=== PATIENT | male | born 1980 | race Caucasian/White ===

== ENCOUNTER 2022-05-04 17:42 | Inpatient (IN) | payer OTHER, SELFPAY ==
--- NOTE | ~2022-05-04 | XR_ITS ---
EXAMINATION: XR CHEST CLINICAL INFORMATION: Altered mental status COMPARISON: None TECHNIQUE: Frontal view of the chest was obtained. FINDINGS: No significant abnormality is noted involving the heart, lungs, mediastinum, bony thorax or soft tissues. XR/XR chest 1V IMPRESSION: Unremarkable examination.
[2022-05-04 19:04] VITALS: BP 166/95; PULSE 123; RESP 18; TEMP 36.4; O2SAT 98; BMI 30.1
--- NOTE | 2022-05-04 19:04 | ED_ITS ---
HPI - General Adult General Chief complaint: General Medical <LOUISA Galaviz - Last Filed: 05/04/22 19:12> Stated complaint: dental pain <LOUISA Galaviz Last Filed: 05/04/22 19:12> Time Seen by Provider: 05/04/22 19:48 <LOUISA Galaviz - Last Filed: 05/04/22 19:12> Source: patient and family (patient's father) <LOUISA Araiza Last Filed: 05/05/22 02:38> Mode of arrival: ambulatory <LOUISA Araiza - Last Filed: 05/05/22 02:38> Limitations: no limitations <LOUISA Araiza Last Filed: 05/05/22 02:38> History of Present Illness HPI narrative: Patient is a 42 year old assigned male at with no reported medical history presenting to the emergency department today with dental pain, difficulty urinating, and extreme thirst. Patient states that over the last few days he has had left sided dental pain, extreme thirst, and difficulty urinating. Patient denies any dizziness, lightheadedness, abdominal pain, nausea, vomiting, fever, chills, blurry vision, double vision, loss of vision, chest pain, difficulty breathing, shortness of breath, back pain, night sweats, pain with urination, increased urinary frequency, increased urinary urgency, blood in his urine or stool, syncope or a near syncopal episode, recent trauma or falls, bowel incontinence, bladder incontinence, bowel retention, bladder retention, or any other complaints at this time. <LOUISA Araiza - Last Filed: 05/05/22 02:38> Onset (ago): day(s) <LOUISA Araiza - Last Filed: 05/05/22 02:38> Severity: moderate <LOUISA Araiza Last Filed: 05/05/22 02:38> Severity scale (1-10): 5 <LOUISA Araiza Last Filed: 05/05/22 02:38> Relieving factors: none <LOUISA Araiza Last Filed: 05/05/22 02:38> Exacerbating factors: none <LOUISA Araiza Last Filed: 05/05/22 02:38> Treatments prior to arrival: none <LOUISA Araiza - Last Filed: 05/05/22 02:38> Related Data Home medications: Previous Rx's Medication Instructions Recorded alcohol swabs 1 pad topical QIDACHS #300 ea 05/07/22 blood sugar diagnostic (True #120 ea 05/07/22 Metrix Glucose Test Strip) blood sugar diagnostic (True #120 ea 05/07/22 Metrix Glucose Test Strip) blood-glucose meter (True Metrix #1 ea 05/07/22 Glucose Meter kit) blood-glucose meter (True Metrix #1 ea 05/07/22 Glucose Meter kit) insulin aspart U-100 100 unit/mL 15 unit (0.15 mL) subcut TID #15 mL 05/07/22 (3 mL) subcutaneous pen (Novolog Flexpen U-100 Insulin aspart) insulin glargine 100 unit/mL (3 80 unit (0.8 mL) subcut BID #60 mL 05/07/22 mL) subcutaneous pen (Lantus Solostar U-100 Insulin) insulin lispro 100 unit/mL 15 unit (0.15 mL) subcut TIDAC #15 05/07/22 subcutaneous pen (Humalog KwikPen mL (U-100) Insulin) lancets (Lancets,Thin) #120 ea 05/07/22 lancets (Lancets,Thin) #120 ea 05/07/22 pen needle, diabetic 32 gauge x #300 ea 05/07/22 1/4 insulin degludec 200 unit/mL (3 80 unit (0.4 mL) subcut BID 30 05/14/22 mL) subcutaneous pen (Tresiba days #24 mL FlexTouch U-200 insulin) <LOUISA Gaalviz - Last Filed: 05/04/22 19:12> Allergies/adverse reactions: Allergies Allergy/AdvReac Type Severity Reaction Status Date / Time No Known Allergies Allergy Verified 05/14/22 11:12 <LOUISA Galaviz - Last Filed: 05/04/22 19:12> Review of Systems Constitutional: Constitutional: Reports no additional constitutional complaints, Denies chills, Denies fever(s) and Denies night sweats <LOUISA Araiza - Last Filed: 05/05/22 02:38> Eyes: Eyes: Reports no additional eye complaints, Denies blurry vision, Denies change in vision, Denies diplopia, Denies eye discharge, Denies loss of vision and Denies eye pain <LOUISA Araiza Last Filed: 05/05/22 02:38> ENT: Denies dizziness <LOUISA Araiza - Last Filed: 05/05/22 02:38> Comments: dental pain <LOUISA Araiza - Last Filed: 05/05/22 02:38> Cardiovascular: Cardiovascular: Reports no additional cardiovascular complaints, Denies chest pain, Denies lightheadedness, Denies Loss of Consciousness and Denies dyspnea <LOUISA Araiza - Last Filed: 05/05/22 02:38> Respiratory: Respiratory: Reports no additional respiratory complaints and Denies dyspnea <LOUISA Araiza - Last Filed: 05/05/22 02:38> Gastrointestinal: Gastrointestinal: Reports no additional gastrointestinal complaints, Denies abdominal pain, Denies melena, Denies hematochezia, Denies change in bowel habits and Denies change in stool character <LOUISA Araiza Last Filed: 05/05/22 02:38> Genitourinary: Genitourinary: Reports no additional male genitourinary complaints, Denies hematuria, Denies oliguria, Denies difficulty urinating, Ed es dysuria, Denies urinary frequency, Denies urinary hesitancy, Denies urinary incontinence and Denies urinary urgency <LOUISA Araiza Last Filed: 05/05/22 02:38> Musculoskeletal: Musculoskeletal: Reports no additional musculoskeletal complaints, Denies numbness and Denies tingling <LOUISA Araiza Last Filed: 05/05/22 02:38> Neurologic: Denies dizziness, Denies loss of vision, Denies numbness and Denies tingling <LOUISA Araiza Last Filed: 05/05/22 02:38> Psychiatric: Psychiatric: Reports no additional psychiatric complaints <LOUISA Araiza Last Filed: 05/05/22 02:38> Endocrine: Endocrine: Reports no additional endocrine complaints <LOUISA Araiza Last Filed: 05/05/22 02:38> Comments: increasd thirst <LOUISA Araiza - Last Filed: 05/05/22 02:38> Hematologic/Lymphatic: Hematologic/Lymphatic: Reports no additional hematologic/lymphatic complaints <LOUISA Araiza - Last Filed: 05/05/22 02:38> Allergic/Immunologic: Allergic/Immunologic: Reports no additional allergic/immunologic complaints <LOUISA Araiza - Last Filed: 05/05/22 02:38> [facility] Past Medical History Attestation statement: The following information was validated with the patient. <LOUISA Hollins - Last Filed: 05/05/22 02:38> Source: old records reviewed, obtained from family (patient's father) and nursing notes reviewed <LOUISA Araiza - Last Filed: 05/05/22 02:38> Medical History: Medical History (Updated 05/17/22 @ 00:02 by Eber Hi) Uncontrolled diabetes mellitus with hyperglycemia <LOUISA Galaviz - Last Filed: 05/04/22 19:12> Family History Family History: Family History (Updated 05/14/22 @ 11:14 by Ara Rao) Father Diabetes Paternal Grandmother Diabetes Paternal Uncle Diabetes <LOUISA Galaviz - Last Filed: 05/04/22 19:12> Social History Social History: Social History Household Members: None Housing: Apartment Do you presently have visiting nurse or other home services: No Patient Tobacco Use Status: Never used Tobacco e-Cigarette/Vaping Use: Never Used Second Hand Smoke Exposure: No service: No Current occupational status: employed <LOUISA Galaviz - Last Filed: 05/04/22 19:12> Physical Exam ED Vital Signs: Vital Signs - 24 hr 05/04/22 19:04 05/04/22 20:45 Temperature 97.5 F Pulse Rate 123 H 120 H Respiratory Rate 18 20 Blood Pressure 166/95 H 161/104 H Pulse Oximetry 98 96 Oxygen Delivery Method Room Air Room Air BMI result Body Mass Index 30.1 <LOUISA Galaviz - Last Filed: 05/04/22 19:12> Vital Signs - 24 hr 05/04/22 19:04 05/04/22 20:45 Temperature 97.5 F Pulse Rate 123 H 120 H Respiratory Rate 18 20 Blood Pressure 166/95 H 161/104 H Pulse Oximetry 98 96 Oxygen Delivery Method Room Air Room Air BMI result Body Mass Index 30.1 <LOUISA Araiza - Last Filed: 05/05/22 02:38> Const General: cooperative, no acute distress, alert and awake <LOUISA Araiza - Last Filed: 05/05/22 02:38> Nutritional Appearance: well nourished <LOUISA Araiza - Last Filed: 05/05/22 02:38> Orientation/consciousness: patient oriented x3 <LOUISA Araiza - Last Filed: 05/05/22 02:38> Limitations: no limitations <LOUISA Araiza - Last Filed: 05/05/22 02:38> HENMT Head: Yes normal to inspection and Yes atraumatic <LOUISA Araiza - Last Filed: 05/05/22 02:38> Ears: hearing grossly normal bilaterally and external ears normal <LOUISA Araiza - Last Filed: 05/05/22 02:38> General nose exam: Normal external nose present, no nasal discharge noted and no epistaxis <LOUISA Araiza - Last Filed: 05/05/22 02:38> Face and sinus: Yes normal facial exam, No abrasion and No laceration <LOUISA Araiza - Last Filed: 05/05/22 02:38> Mouth: Normal oral and palatal mucosa present, no drooling and no muffled voice <LOUISA Araiza - Last Filed: 05/05/22 02:38> Eyes General: appearance normal, both eyes and all related structures <LOUISA Araiza - Last Filed: 05/05/22 02:38> Periorbital: periorbital findings normal <LOUISA Araiza - Last Filed: 05/05/22 02:38> Eyelids: Yes eyelids normal <LOUISA Araiza - Last Filed: 05/05/22 02:38> Conjunctivae: conjunctivae normal <LOUISA Araiza - Last Filed: 05/05/22 02:38> Pupils: Equal, round and reactive pupils present <LOUISA Araiza - Last Filed: 05/05/22 02:38> EOM: EOMs intact bilaterally <Nina Luu PA - Last Filed: 05/05/22 02:38> Neck Neck: Yes normal visual inspection, Yes full ROM and Yes no lymphadenopathy <Nina Luu PA - Last Filed: 05/05/22 02:38> Chest Chest palpation & inspection: normal inspection of the chest <Nina Luu PA - Last Filed: 05/05/22 02:38> Resp Effort & Inspection: normal respiratory effort and able to speak in complete sentences <Nina Luu PA - Last Filed: 05/05/22 02:38> Auscultation: clear to auscultation bilaterally <Nina Luu PA - Last Filed: 05/05/22 02:38> Cardio Rate: tachycardic <Nina Luu PA - Last Filed: 05/05/22 02:38> Rhythm: regular rhythm <Nina Luu PA - Last Filed: 05/05/22 02:38> GI Inspection: Yes normal to inspection <Nina Luu PA - Last Filed: 05/05/22 02:38> Palpation (GI): Soft to palpation, not firm, nontender, no guarding and not rigid <Nina Luu PA - Last Filed: 05/05/22 02:38> Neuro General: patient oriented x3 and moves all extremities <Nina Luu PA - Last Filed: 05/05/22 02:38> Cranial nerves: Yes Equal, round and reactive pupils present <Nina Luu PA - Last Filed: 05/05/22 02:38> Cognition (Neuro): normal cognition <Nina Luu PA - Last Filed: 05/05/22 02:38> Motor exam (neuro): 5/5 motor strength present throughout <Nina Luu PA - Last Filed: 05/05/22 02:38> Sensory Exam: Normal double simultaneous stimulation for sensation <Nina Luu PA - Last Filed: 05/05/22 02:38> Coordination: [id number] test normal <Nina Luu PA - Last Filed: 05/05/22 02:38> Extrem General: Yes normal to inspection, Yes full ROM and Yes capillary refill normal <Nina Luu PA - Last Filed: 05/05/22 02:38> Psych Appearance: grossly normal <LOUISA Araiza - Last Filed: 05/05/22 02:38> Mental Status: mental status grossly normal <LOUISA Araiza - Last Filed: 05/05/22 02:38> Affect: normal affect <LOUISA Araiza - Last Filed: 05/05/22 02:38> Attitude: cooperative <LOUISA Araiza - Last Filed: 05/05/22 02:38> Thought process: Normal thought process present <LOUISA Araiza Last Filed: 05/05/22 02:38> Thought content: Normal thought content present <LOUISA Araiza Last Filed: 05/05/22 02:38> Insight: Good insight present (Psych) <LOUISA Araiza Last Filed: 05/05/22 02:38> Course Course Course Narrative: RME-19:05PM - 42yoM presenting to the ED with his father at bedside with complaints of increased confusion/altered mental status, dental pain, increasing urination difficulty walking this has been happening for over a week. The father did not realize this was happening up until yesterday therefore he brought him here for further evaluation treatment. He tried to check his blood glucose level because he is a diabetic although he does not believe the patient is a diabetic that he is aware of. On exam patient appears confused although he is alert and able to tell me his full name, date of the year and location he is at. Plan: POC care done in triage due to patient's confusion and it is too high to be read on the glucose monitor therefore patient is going to the emergency department for further evaluation treatment for possible DKA new onset of diabetes. <LOUISA Galaviz - Last Filed: 05/04/22 19:12> Medications Administered Discontinued Medications Generic Name Dose Route Start Last Admin Trade Name Garryq PRN Reason Stop Dose Admin Famotidine 20 mg 05/04/22 23:15 05/05/22 20:03 Famotidine/Pf 20 Mg/2 Ml Vial IVPUSH 20 mg BID LAURYN Administration Heparin Sodium (Porcine) 5,000 unit 05/04/22 23:15 05/09/22 17:05 Heparin Sodium,Porcine 5,000 Unit/Ml Vial SUBCUT Not Given Q8H LAURYN Sodium Chloride 1,000 mls @ 999 mls/hr 05/04/22 19:15 05/04/22 23:28 Ns IVCONT 05/04/22 20:15 Infused .Q1H1M LAURYN Infusion Sodium Chloride 1,000 mls @ 999 mls/hr 05/04/22 19:45 05/04/22 23:28 Ns IVCONT 05/04/22 20:45 Infused .Q1H1M LAURYN Infusion Insulin Human Regular 100 unit in 100 mls @ 7 mls/hr 05/04/22 20:30 05/05/22 09:47 Myxredlin IVCONT Infused .[id number] LAURYN Titration Protocol 7 UNIT/HR Sodium Chloride 1,000 mls @ 250 mls/hr 05/04/22 23:00 05/05/22 04:58 Sodium Chloride 0.45 % IVCONT Infused .Q4H LAURYN Infusion Potassium Chloride/Sodium Chloride 20 meq in 1,000 mls @ 150 mls/hr 05/05/22 05:00 05/05/22 07:13 Kcl 20 Meq In 0.45% Sod IVCONT Infused .Q6H40M LAURYN Infusion Potassium Chloride/Dextrose/Sod Cl 40 meq in 1,000 mls @ 125 mls/hr 05/05/22 06:45 05/05/22 09:17 Kcl 40 Meq In 5% Dex/0.45% Sod IVCONT Infused .Q8H LAURYN Infusion Potassium Phosphate 15 mmol in 250 mls @ 62.5 mls/hr 05/05/22 06:42 05/05/22 12:07 Kphos IV 05/05/22 10:41 Infused ONCE ONE Infusion Dextrose 1,000 mls @ 125 mls/hr 05/05/22 08:30 05/05/22 14:40 D5w IVCONT Infused .Q8H LAURYN Infusion Insulin Glargine 40 unit 05/05/22 09:40 05/05/22 10:00 Insulin Glargine,Hum.Rec.Anlog 100 Unit/Ml 10 Ml Vial SUBCUT 40 unit DAILY LAURYN Administration Insulin Glargine 20 unit 05/05/22 13:11 05/05/22 13:30 Insulin Glargine,Hum.Rec.Anlog 100 Unit/Ml 10 Ml Vial SUBCUT 05/05/22 13:12 20 unit ONCE ONE Administration Insulin Glargine 20 unit 05/05/22 16:47 05/05/22 17:02 Insulin Glargine,Hum.Rec.Anlog 100 Unit/Ml 10 Ml Vial SUBCUT 05/05/22 16:48 20 unit ONCE ONE Administration Insulin Glargine 80 unit 05/06/22 09:00 05/09/22 08:47 Insulin Glargine,Hum.Rec.Anlog 100 Unit/Ml 10 Ml Vial SUBCUT 80 unit BID LAURYN Administration Insulin Human Lispro 0 unit 05/05/22 11:30 05/09/22 17:20 Insulin Lispro 100 Unit/Ml 3 Ml Vial SUBCUT Not Given QIDACHS [facility] Protocol Insulin Human Lispro 10 unit 05/05/22 21:58 05/05/22 22:09 Insulin Lispro 100 Unit/Ml 3 Ml Vial SUBCUT 05/05/22 21:59 10 unit ONCE ONE Administration Insulin Human Regular 8 unit 05/04/22 19:49 05/04/22 20:29 Insulin Regular, Human 100 Unit/Ml 3 Ml Vial 0.1 unit/kg (8 unit) 05/04/22 19:50 8 unit IVPUSH Administration ONCE ONE Pt Own (Insulin 15 units 05/09/22 14:08 05/09/22 15:02 Aspart Flexpen ) SUBCUT 05/09/22 14:09 15 units ONCE ONE Administration Pt Own (Insulin 15 unit 05/09/22 15:14 05/09/22 17:21 Aspart Pen 15 Unit) SUBCUT 05/09/22 15:15 Not Given ONCE ONE Pt Own (Insulin 15 unit 05/09/22 17:00 05/09/22 17:04 Aspart Pen 15 Unit) SUBCUT 05/09/22 17:01 15 unit ONCE ONE Administration Potassium Chloride 20 meq 05/05/22 20:12 05/05/22 20:32 Potassium Chloride Packet 20 Meq Packet PO 05/05/22 20:13 20 meq ONCE ONE Administration Potassium Chloride 40 meq 05/06/22 08:00 05/06/22 08:01 Potassium Chloride Packet 20 Meq Packet PO 05/06/22 08:01 40 meq Q4H LAURYN Administration Sodium Chloride 3 ml 05/05/22 00:00 05/09/22 17:05 0.9 % Sodium Chloride Flush 3 Ml Syringe IVFLUSH Not Given QSHIFT LAURYN <LOUISA Galaviz - Last Filed: 05/04/22 19:12> Medications Administered Discontinued Medications Generic Name Dose Route Start Last Admin Trade Name Prema PRN Reason Stop Dose Admin Famotidine 20 mg 05/04/22 23:15 05/05/22 20:03 Famotidine/Pf 20 Mg/2 Ml Vial IVPUSH 20 mg BID LAURYN Administration Heparin Sodium (Porcine) 5,000 unit 05/04/22 23:15 05/09/22 17:05 Heparin Sodium,Porcine 5,000 Unit/Ml Vial SUBCUT Not Given Q8H LAURYN Sodium Chloride 1,000 mls @ 999 mls/hr 05/04/22 19:15 05/04/22 23:28 Ns IVCONT 05/04/22 20:15 Infused .Q1H1M LAURYN Infusion Sodium Chloride 1,000 mls @ 999 mls/hr 05/04/22 19:45 05/04/22 23:28 Ns IVCONT 05/04/22 20:45 Infused .Q1H1M LAURYN Infusion Insulin Human Regular 100 unit in 100 mls @ 7 mls/hr 05/04/22 20:30 05/05/22 09:47 Myxredlin IVCONT Infused .[id number] LAURYN Titration Protocol 7 UNIT/HR Sodium Chloride 1,000 mls @ 250 mls/hr 05/04/22 23:00 05/05/22 04:58 Sodium Chloride 0.45 % IVCONT Infused .Q4H LAURYN Infusion Potassium Chloride/Sodium Chloride 20 meq in 1,000 mls @ 150 mls/hr 05/05/22 05:00 05/05/22 07:13 Kcl 20 Meq In 0.45% Sod IVCONT Infused .Q6H40M LAURYN Infusion Potassium Chloride/Dextrose/Sod Cl 40 meq in 1,000 mls @ 125 mls/hr 05/05/22 06:45 05/05/22 09:17 Kcl 40 Meq In 5% Dex/0.45% Sod IVCONT Infused .Q8H LAURYN Infusion Potassium Phosphate 15 mmol in 250 mls @ 62.5 mls/hr 05/05/22 06:42 05/05/22 12:07 Kphos IV 05/05/22 10:41 Infused ONCE ONE Infusion Dextrose 1,000 mls @ 125 mls/hr 05/05/22 08:30 05/05/22 14:40 D5w IVCONT Infused .Q8H LAURYN Infusion Insulin Glargine 40 unit 05/05/22 09:40 05/05/22 10:00 Insulin Glargine,Hum.Rec.Anlog 100 Unit/Ml 10 Ml Vial SUBCUT 40 unit DAILY LAURYN Administration Insulin Glargine 20 unit 05/05/22 13:11 05/05/22 13:30 Insulin Glargine,Hum.Rec.Anlog 100 Unit/Ml 10 Ml Vial SUBCUT 05/05/22 13:12 20 unit ONCE ONE Administration Insulin Glargine 20 unit 05/05/22 16:47 05/05/22 17:02 Insulin Glargine,Hum.Rec.Anlog 100 Unit/Ml 10 Ml Vial SUBCUT 05/05/22 16:48 20 unit ONCE ONE Administration Insulin Glargine 80 unit 05/06/22 09:00 05/09/22 08:47 Insulin Glargine,Hum.Rec.Anlog 100 Unit/Ml 10 Ml Vial SUBCUT 80 unit BID LAURYN Administration Insulin Human Lispro 0 unit 05/05/22 11:30 05/09/22 17:20 Insulin Lispro 100 Unit/Ml 3 Ml Vial SUBCUT Not Given QIDACHS [facility] Protocol Insulin Human Lispro 10 unit 05/05/22 21:58 05/05/22 22:09 Insulin Lispro 100 Unit/Ml 3 Ml Vial SUBCUT 05/05/22 21:59 10 unit ONCE ONE Administration Insulin Human Regular 8 unit 05/04/22 19:49 05/04/22 20:29 Insulin Regular, Human 100 Unit/Ml 3 Ml Vial 0.1 unit/kg (8 unit) 05/04/22 19:50 8 unit IVPUSH Administration ONCE ONE Pt Own (Insulin 15 units 05/09/22 14:08 05/09/22 15:02 Aspart Flexpen ) SUBCUT 05/09/22 14:09 15 units ONCE ONE Administration Pt Own (Insulin 15 unit 05/09/22 15:14 05/09/22 17:21 Aspart Pen 15 Unit) SUBCUT 05/09/22 15:15 Not Given ONCE ONE Pt Own (Insulin 15 unit 05/09/22 17:00 05/09/22 17:04 Aspart Pen 15 Unit) SUBCUT 05/09/22 17:01 15 unit ONCE ONE Administration Potassium Chloride 20 meq 05/05/22 20:12 05/05/22 20:32 Potassium Chloride Packet 20 Meq Packet PO 05/05/22 20:13 20 meq ONCE ONE Administration Potassium Chloride 40 meq 05/06/22 08:00 05/06/22 08:01 Potassium Chloride Packet 20 Meq Packet PO 05/06/22 08:01 40 meq Q4H LAURYN Administration Sodium Chloride 3 ml 05/05/22 00:00 05/09/22 17:05 0.9 % Sodium Chloride Flush 3 Ml Syringe IVFLUSH Not Given QSHIFT LAURYN <LOUISA Araiza - Last Filed: 05/05/22 02:38> Medical Decision Making Medical Decision Making MDM Narrative: Patient is a 42 year old assigned male at with no reported medical history presenting to the emergency department today with left sided dental pain and increased thirst. Patient's physical exam showed tachycardia. Patient's blood work showed an elevated glucose of 1695, an elevated lactic acid of 4.2, an elevated CR of 2.81, an elevated BUN of 31, an elevated anion gap of 32, an elevated potassium of 5.9, an elevated phosphorus of 4.6, and a decreased sodium of 127. Patient's urine showed no acute infection. Patient's EKG showed sinus tachycardia. Patient's chest x-ray showed no acute process. Patient was immediately given IV fluids, 8 units of insulin, and started on an insulin drip. Patient's clinical presentation is most consistent with DKA vs. HHS. Patient's clinical presentation is not consistent with sepsis. I spoke to the dynamic balancer who agreed to admission. I explained my physical exam findings as well as all test results to the patient and the patient's father. I answered all questions asked by the patient and the patient's father. Patient and the patient's father verbalized agreement and understanding with this treatment plan and admission. <LOIUSA Araiza - Last Filed: 05/05/22 02:38> Differential Diagnosis Differential Diagnoses: The differential diagnosis associated with the presentation includes <LOUISA Brady - Last Filed: 05/05/22 02:38> HHS, DKA <LOUISA Araiza - Last Filed: 05/05/22 02:38> Consult Healthcare Provider Management of the patient was discussed with: Skip Hoist Operator (dynamic balancer who agreed to admission) <LOUISA Araiza - Last Filed: 05/05/22 02:38> Lab Data MDM Lab Attestation statement: I reviewed the patient's lab results. <LOUISA Araiza - Last Filed: 05/05/22 02:38> Result Diagrams: : 05/07/22 05:50 05/07/22 05:50 <LOUISA Galaviz - Last Filed: 05/04/22 19:12> Labs: Lab Results 05/04/22 05/04/22 05/04/22 Range/Units 19:09 19:12 19:15 WBC (4.8-10.8) X10*3/uL RBC (4.60-5.80) X10*6/uL Hgb (14.0-18.0) g/dl Hct (42.0-52.0) % MCV (80.0-98.0) fL MCH (27.0-33.0) pg MCHC (31.0-36.0) g/dl RDW (11.0-16.0) % Plt Count (160-400) X10*3/uL MPV (9.4-12.4) fL Immature Gran % (Auto) (0.0-0.4) % Neut % (Auto) (45-73) % Lymph % (Auto) (20-40) % [place] % (Auto) (2-11) % Eos % (Auto) (0-4) % Baso % (Auto) (0-2) % Lymph # (Auto) (1.2-4.9) X10*3/uL [place] # (Auto) (0.1-1.2) X10*3/uL Eos # (Auto) (0.0-0.4) X10*3/uL Baso # (Auto) (0.0-0.2) X10*3/uL Abs Immat Gran (auto) (0.00-0.03) X10*3/uL Absolute Neuts (auto) (2.0-8.3) x10*3/uL Absolute Nucleated RBC (0.0-0.012) X10*3/uL Nucleated RBC % (auto) (0.0-0.2) /100WBC PT (10.0-13.1) SEC INR (0.9-1.1) VBG pH (7.32-7.43) VBG pCO2 mmHg VBG pO2 mmHg VBG HCO3 (22-26) mmol/L VBG O2 Saturation % VBG Base Excess mmol/L Sodium (135-145) mmol/L Potassium (3.3-5.1) mmol/L Chloride (96-108) mmol/L Carbon Dioxide (22-29) mmol/L Anion Gap (12-20) BUN (9-16) mg/dL Creatinine (0.5-1.4) mg/dL Estim Creat Clear Calc Estimated GFR POC Glucose > 600 H* > 600 H* > 600 H* (60-115) mg/dL Random Glucose (60-115) mg/dL Lactic Acid (0.5-2.0) mmol/L Lactic Acid F/U @ 2Hr (0.5-2.0) mmol/L Calcium (8.4-10.2) mg/dL Phosphorus (2.7-4.5) mg/dL Magnesium (1.6-2.6) mg/dL Total Bilirubin (0.0-1.0) mg/dL AST (5-37) U/L ALT (0-40) U/L Alkaline Phosphatase (39-117) U/L Troponin I High Sens (<3.5-35.0) ng/L Total Protein (6.5-8.0) g/dL Albumin (3.5-5.0) g/dL Urine Color Urine Appearance Urine pH (5.0-9.0) Ur Specific [place] (1.005-1.025) Urine Protein (Neg-Trace) mg/dL Urine Glucose (UA) (Negative) mg/dL Urine Ketones (Negative) mg/dL Urine Blood (Negative) Urine Nitrite (Negative) Ur Leukocyte Esterase (Negative) Urine RBC (0-2) /HPF Urine WBC (0-5) /HPF Ur Squamous Epith Cells (0-2) /HPF Urine Bacteria (None Seen) Hyaline Casts (0-2) /LPF Urine Opiates Screen (Not Detect) Urine Fentanyl Screen (Not Detect) Ur Barbiturates Screen (Not Detect) Ur Phencyclidine Scrn (Not Detect) Ur Amphetamines Screen (Not Detect) U Benzodiazepines Scrn (Not Detect) Urine Cocaine Screen (Not Detect) U Marijuana (THC) Screen (Not Detect) Ethyl Alcohol mg/dL Acetone, Qual (Negative) Influenza Type A (PCR) (Negative) Influenza Type B (PCR) (Negative) RSV RNA Qual (PCR) (Negative) SARS-CoV-2 RNA (RT-PCR) (Negative) 05/04/22 05/04/22 05/04/22 Range/Units 20:15 20:15 20:16 WBC (4.8-10.8) X10*3/uL RBC (4.60-5.80) X10*6/uL Hgb (14.0-18.0) g/dl Hct (42.0-52.0) % MCV (80.0-98.0) fL MCH (27.0-33.0) pg MCHC (31.0-36.0) g/dl RDW (11.0-16.0) % Plt Count (160-400) X10*3/uL MPV (9.4-12.4) fL Immature Gran % (Auto) (0.0-0.4) % Neut % (Auto) (45-73) % Lymph % (Auto) (20-40) % [place] % (Auto) (2-11) % Eos % (Auto) (0-4) % Baso % (Auto) (0-2) % Lymph # (Auto) (1.2-4.9) X10*3/uL [place] # (Auto) (0.1-1.2) X10*3/uL Eos # (Auto) (0.0-0.4) X10*3/uL Baso # (Auto) (0.0-0.2) X10*3/uL Abs Immat Gran (auto) (0.00-0.03) X10*3/uL Absolute Neuts (auto) (2.0-8.3) x10*3/uL Absolute Nucleated RBC (0.0-0.012) X10*3/uL Nucleated RBC % (auto) (0.0-0.2) /100WBC PT 11.7 (10.0-13.1) SEC INR 1.0 (0.9-1.1) VBG pH (7.32-7.43) VBG pCO2 mmHg VBG pO2 mmHg VBG HCO3 (22-26) mmol/L VBG O2 Saturation % VBG Base Excess mmol/L Sodium (135-145) mmol/L Potassium (3.3-5.1) mmol/L Chloride (96-108) mmol/L Carbon Dioxide (22-29) mmol/L Anion Gap (12-20) BUN (9-16) mg/dL Creatinine (0.5-1.4) mg/dL Estim Creat Clear Calc Estimated GFR POC Glucose (60-115) mg/dL Random Glucose (60-115) mg/dL Lactic Acid (0.5-2.0) mmol/L Lactic Acid F/U @ 2Hr (0.5-2.0) mmol/L Calcium (8.4-10.2) mg/dL Phosphorus (2.7-4.5) mg/dL Magnesium (1.6-2.6) mg/dL Total Bilirubin (0.0-1.0) mg/dL AST (5-37) U/L ALT (0-40) U/L Alkaline Phosphatase (39-117) U/L Troponin I High Sens 8.7 (<3.5-35.0) ng/L Total Protein (6.5-8.0) g/dL Albumin (3.5-5.0) g/dL Urine Color Urine Appearance Urine pH (5.0-9.0) Ur Specific [place] (1.005-1.025) Urine Protein (Neg-Trace) mg/dL Urine Glucose (UA) (Negative) mg/dL Urine Ketones (Negative) mg/dL Urine Blood (Negative) Urine Nitrite (Negative) Ur Leukocyte Esterase (Negative) Urine RBC (0-2) /HPF Urine WBC (0-5) /HPF Ur Squamous Epith Cells (0-2) /HPF Urine Bacteria (None Seen) Hyaline Casts (0-2) /LPF Urine Opiates Screen (Not Detect) Urine Fentanyl Screen (Not Detect) Ur Barbiturates Screen (Not Detect) Ur Phencyclidine Scrn (Not Detect) Ur Amphetamines Screen (Not Detect) U Benzodiazepines Scrn (Not Detect) Urine Cocaine Screen (Not Detect) U Marijuana (THC) Screen (Not Detect) Ethyl Alcohol mg/dL Acetone, Qual (Negative) Influenza Type A (PCR) NEGATIVE (Negative) Influenza Type B (PCR) NEGATIVE (Negative) RSV RNA Qual (PCR) NEGATIVE (Negative) SARS-CoV-2 RNA (RT-PCR) NEGATIVE (Negative) 05/04/22 05/04/22 05/04/22 Range/Units 20:16 20:17 20:17 WBC 8.7 (4.8-10.8) X10*3/uL RBC 5.48 (4.60-5.80) X10*6/uL Hgb 15.1 (14.0-18.0) g/dl Hct 55.1 H (42.0-52.0) % MCV 100.5 H (80.0-98.0) fL MCH 27.6 (27.0-33.0) pg MCHC 27.4 L (31.0-36.0) g/dl RDW 13.3 (11.0-16.0) % Plt Count 235 (160-400) X10*3/uL MPV 11.5 (9.4-12.4) fL Immature Gran % (Auto) 0.6 H (0.0-0.4) % Neut % (Auto) 83.6 H (45-73) % Lymph % (Auto) 9.0 L (20-40) % [place] % (Auto) 6.4 (2-11) % Eos % (Auto) 0.1 (0-4) % Baso % (Auto) 0.3 (0-2) % Lymph # (Auto) 0.8 L (1.2-4.9) X10*3/uL [place] # (Auto) 0.6 (0.1-1.2) X10*3/uL Eos # (Auto) 0.0 (0.0-0.4) X10*3/uL Baso # (Auto) 0.0 (0.0-0.2) X10*3/uL Abs Immat Gran (auto) 0.05 H (0.00-0.03) X10*3/uL Absolute Neuts (auto) 7.3 (2.0-8.3) x10*3/uL Absolute Nucleated RBC 0.000 (0.0-0.012) X10*3/uL Nucleated RBC % (auto) 0.0 (0.0-0.2) /100WBC PT (10.0-13.1) SEC INR (0.9-1.1) VBG pH (7.32-7.43) VBG pCO2 mmHg VBG pO2 mmHg VBG HCO3 (22-26) mmol/L VBG O2 Saturation % VBG Base Excess mmol/L Sodium 127 L (135-145) mmol/L Potassium 5.9 H (3.3-5.1) mmol/L Chloride 82 L (96-108) mmol/L Carbon Dioxide 19 L (22-29) mmol/L Anion Gap 32 H (12-20) BUN 31 H (9-16) mg/dL Creatinine 2.81 H (0.5-1.4) mg/dL Estim Creat Clear Calc 31.4 Estimated GFR 25 POC Glucose (60-115) mg/dL Random Glucose 1695 H* (60-115) mg/dL Lactic Acid (0.5-2.0) mmol/L Lactic Acid F/U @ 2Hr (0.5-2.0) mmol/L Calcium 9.9 (8.4-10.2) mg/dL Phosphorus 4.6 H (2.7-4.5) mg/dL Magnesium 3.1 H (1.6-2.6) mg/dL Total Bilirubin 0.8 (0.0-1.0) mg/dL AST 71 H (5-37) U/L ALT 126 H (0-40) U/L Alkaline Phosphatase 194 H (39-117) U/L Troponin I High Sens (<3.5-35.0) ng/L Total Protein 7.3 (6.5-8.0) g/dL Albumin 4.1 (3.5-5.0) g/dL Urine Color Urine Appearance Urine pH (5.0-9.0) Ur Specific [place] (1.005-1.025) Urine Protein (Neg-Trace) mg/dL Urine Glucose (UA) (Negative) mg/dL Urine Ketones (Negative) mg/dL Urine Blood (Negative) Urine Nitrite (Negative) Ur Leukocyte Esterase (Negative) Urine RBC (0-2) /HPF Urine WBC (0-5) /HPF Ur Squamous Epith Cells (0-2) /HPF Urine Bacteria (None Seen) Hyaline Casts (0-2) /LPF Urine Opiates Screen (Not Detect) Urine Fentanyl Screen (Not Detect) Ur Barbiturates Screen (Not Detect) Ur Phencyclidine Scrn (Not Detect) Ur Amphetamines Screen (Not Detect) U Benzodiazepines Scrn (Not Detect) Urine Cocaine Screen (Not Detect) U Marijuana (THC) Screen (Not Detect) Ethyl Alcohol < 10 mg/dL Acetone, Qual Small H (Negative) Influenza Type A (PCR) (Negative) Influenza Type B (PCR) (Negative) RSV RNA Qual (PCR) (Negative) SARS-CoV-2 RNA (RT-PCR) (Negative) 05/04/22 05/04/22 05/04/22 Range/Units 20:17 20:27 20:36 WBC (4.8-10.8) X10*3/uL RBC (4.60-5.80) X10*6/uL Hgb (14.0-18.0) g/dl Hct (42.0-52.0) % MCV (80.0-98.0) fL MCH (27.0-33.0) pg MCHC (31.0-36.0) g/dl RDW (11.0-16.0) % Plt Count (160-400) X10*3/uL MPV (9.4-12.4) fL Immature Gran % (Auto) (0.0-0.4) % Neut % (Auto) (45-73) % Lymph % (Auto) (20-40) % [place] % (Auto) (2-11) % Eos % (Auto) (0-4) % Baso % (Auto) (0-2) % Lymph # (Auto) (1.2-4.9) X10*3/uL [place] # (Auto) (0.1-1.2) X10*3/uL Eos # (Auto) (0.0-0.4) X10*3/uL Baso # (Auto) (0.0-0.2) X10*3/uL Abs Immat Gran (auto) (0.00-0.03) X10*3/uL Absolute Neuts (auto) (2.0-8.3) x10*3/uL Absolute Nucleated RBC (0.0-0.012) X10*3/uL Nucleated RBC % (auto) (0.0-0.2) /100WBC PT (10.0-13.1) SEC INR (0.9-1.1) VBG pH 7.27 L (7.32-7.43) VBG pCO2 51 mmHg VBG pO2 45 mmHg VBG HCO3 24 (22-26) mmol/L VBG O2 Saturation 65.0 % VBG Base Excess -3.2 mmol/L Sodium (135-145) mmol/L Potassium (3.3-5.1) mmol/L Chloride (96-108) mmol/L Carbon Dioxide (22-29) mmol/L Anion Gap (12-20) BUN (9-16) mg/dL Creatinine (0.5-1.4) mg/dL Estim Creat Clear Calc Estimated GFR POC Glucose (60-115) mg/dL Random Glucose (60-115) mg/dL Lactic Acid 4.2 H* (0.5-2.0) mmol/L Lactic Acid F/U @ 2Hr (0.5-2.0) mmol/L Calcium (8.4-10.2) mg/dL Phosphorus (2.7-4.5) mg/dL Magnesium (1.6-2.6) mg/dL Total Bilirubin (0.0-1.0) mg/dL AST (5-37) U/L ALT (0-40) U/L Alkaline Phosphatase (39-117) U/L Troponin I High Sens (<3.5-35.0) ng/L Total Protein (6.5-8.0) g/dL Albumin (3.5-5.0) g/dL Urine Color Yellow Urine Appearance Clear Urine pH 5.0 (5.0-9.0) Ur Specific [place] >= 1.030 H (1.005-1.025) Urine Protein Negative (Neg-Trace) mg/dL Urine Glucose (UA) >=1000 H (Negative) mg/dL Urine Ketones 15 (Negative) mg/dL Urine Blood Negative (Negative) Urine Nitrite Negative (Negative) Ur Leukocyte Esterase Negative (Negative) Urine RBC 0-2 (0-2) /HPF Urine WBC 0-5 (0-5) /HPF Ur Squamous Epith Cells 0-2 (0-2) /HPF Urine Bacteria None Seen (None Seen) Hyaline Casts 0-2 (0-2) /LPF Urine Opiates Screen (Not Detect) Urine Fentanyl Screen (Not Detect) Ur Barbiturates Screen (Not Detect) Ur Phencyclidine Scrn (Not Detect) Ur Amphetamines Screen (Not Detect) U Benzodiazepines Scrn (Not Detect) Urine Cocaine Screen (Not Detect) U Marijuana (THC) Screen (Not Detect) Ethyl Alcohol mg/dL Acetone, Qual (Negative) Influenza Type A (PCR) (Negative) Influenza Type B (PCR) (Negative) RSV RNA Qual (PCR) (Negative) SARS-CoV-2 RNA (RT-PCR) (Negative) 05/04/22 05/04/22 05/04/22 Range/Units 20:36 21:56 21:57 WBC (4.8-10.8) X10*3/uL RBC (4.60-5.80) X10*6/uL Hgb (14.0-18.0) g/dl Hct (42.0-52.0) % MCV (80.0-98.0) fL MCH (27.0-33.0) pg MCHC (31.0-36.0) g/dl RDW (11.0-16.0) % Plt Count (160-400) X10*3/uL MPV (9.4-12.4) fL Immature Gran % (Auto) (0.0-0.4) % Neut % (Auto) (45-73) % Lymph % (Auto) (20-40) % [place] % (Auto) (2-11) % Eos % (Auto) (0-4) % Baso % (Auto) (0-2) % Lymph # (Auto) (1.2-4.9) X10*3/uL [place] # (Auto) (0.1-1.2) X10*3/uL Eos # (Auto) (0.0-0.4) X10*3/uL Baso # (Auto) (0.0-0.2) X10*3/uL Abs Immat Gran (auto) (0.00-0.03) X10*3/uL Absolute Neuts (auto) (2.0-8.3) x10*3/uL Absolute Nucleated RBC (0.0-0.012) X10*3/uL Nucleated RBC % (auto) (0.0-0.2) /100WBC PT (10.0-13.1) SEC INR (0.9-1.1) VBG pH (7.32-7.43) VBG pCO2 mmHg VBG pO2 mmHg VBG HCO3 (22-26) mmol/L VBG O2 Saturation % VBG Base Excess mmol/L Sodium (135-145) mmol/L Potassium (3.3-5.1) mmol/L Chloride (96-108) mmol/L Carbon Dioxide (22-29) mmol/L Anion Gap (12-20) BUN (9-16) mg/dL Creatinine (0.5-1.4) mg/dL Estim Creat Clear Calc Estimated GFR POC Glucose > 600 H* > 600 H* (60-115) mg/dL Random Glucose (60-115) mg/dL Lactic Acid (0.5-2.0) mmol/L Lactic Acid F/U @ 2Hr (0.5-2.0) mmol/L Calcium (8.4-10.2) mg/dL Phosphorus (2.7-4.5) mg/dL Magnesium (1.6-2.6) mg/dL Total Bilirubin (0.0-1.0) mg/dL AST (5-37) U/L ALT (0-40) U/L Alkaline Phosphatase (39-117) U/L Troponin I High Sens (<3.5-35.0) ng/L Total Protein (6.5-8.0) g/dL Albumin (3.5-5.0) g/dL Urine Color Urine Appearance Urine pH (5.0-9.0) Ur Specific [place] (1.005-1.025) Urine Protein (Neg-Trace) mg/dL Urine Glucose (UA) (Negative) mg/dL Urine Ketones (Negative) mg/dL Urine Blood (Negative) Urine Nitrite (Negative) Ur Leukocyte Esterase (Negative) Urine RBC (0-2) /HPF Urine WBC (0-5) /HPF Ur Squamous Epith Cells (0-2) /HPF Urine Bacteria (None Seen) Hyaline Casts (0-2) /LPF Urine Opiates Screen Not Detected (Not Detect) Urine Fentanyl Screen Not Detected (Not Detect) Ur Barbiturates Screen Not Detected (Not Detect) Ur Phencyclidine Scrn Not Detected (Not Detect) Ur Amphetamines Screen Not Detected (Not Detect) U Benzodiazepines Scrn Not Detected (Not Detect) Urine Cocaine Screen Not Detected (Not Detect) U Marijuana (THC) Screen Not Detected (Not Detect) Ethyl Alcohol mg/dL Acetone, Qual (Negative) Influenza Type A (PCR) (Negative) Influenza Type B (PCR) (Negative) RSV RNA Qual (PCR) (Negative) SARS-CoV-2 RNA (RT-PCR) (Negative) 05/04/22 05/04/22 Range/Units 22:30 22:30 WBC (4.8-10.8) X10*3/uL RBC (4.60-5.80) X10*6/uL Hgb (14.0-18.0) g/dl Hct (42.0-52.0) % MCV (80.0-98.0) fL MCH (27.0-33.0) pg MCHC (31.0-36.0) g/dl RDW (11.0-16.0) % Plt Count (160-400) X10*3/uL MPV (9.4-12.4) fL Immature Gran % (Auto) (0.0-0.4) % Neut % (Auto) (45-73) % Lymph % (Auto) (20-40) % [place] % (Auto) (2-11) % Eos % (Auto) (0-4) % Baso % (Auto) (0-2) % Lymph # (Auto) (1.2-4.9) X10*3/uL [place] # (Auto) (0.1-1.2) X10*3/uL Eos # (Auto) (0.0-0.4) X10*3/uL Baso # (Auto) (0.0-0.2) X10*3/uL Abs Immat Gran (auto) (0.00-0.03) X10*3/uL Absolute Neuts (auto) (2.0-8.3) x10*3/uL Absolute Nucleated RBC (0.0-0.012) X10*3/uL Nucleated RBC % (auto) (0.0-0.2) /100WBC PT (10.0-13.1) SEC INR (0.9-1.1) VBG pH (7.32-7.43) VBG pCO2 mmHg VBG pO2 mmHg VBG HCO3 (22-26) mmol/L VBG O2 Saturation % VBG Base Excess mmol/L Sodium (135-145) mmol/L Potassium (3.3-5.1) mmol/L Chloride (96-108) mmol/L Carbon Dioxide (22-29) mmol/L Anion Gap (12-20) BUN (9-16) mg/dL Creatinine (0.5-1.4) mg/dL Estim Creat Clear Calc Estimated GFR POC Glucose (60-115) mg/dL Random Glucose 891 H* (60-115) mg/dL Lactic Acid (0.5-2.0) mmol/L Lactic Acid F/U @ 2Hr 3.7 H* (0.5-2.0) mmol/L Calcium (8.4-10.2) mg/dL Phosphorus (2.7-4.5) mg/dL Magnesium (1.6-2.6) mg/dL Total Bilirubin (0.0-1.0) mg/dL AST (5-37) U/L ALT (0-40) U/L Alkaline Phosphatase (39-117) U/L Troponin I High Sens (<3.5-35.0) ng/L Total Protein (6.5-8.0) g/dL Albumin (3.5-5.0) g/dL Urine Color Urine Appearance Urine pH (5.0-9.0) Ur Specific [place] (1.005-1.025) Urine Protein (Neg-Trace) mg/dL Urine Glucose (UA) (Negative) mg/dL Urine Ketones (Negative) mg/dL Urine Blood (Negative) Urine Nitrite (Negative) Ur Leukocyte Esterase (Negative) Urine RBC (0-2) /HPF Urine WBC (0-5) /HPF Ur Squamous Epith Cells (0-2) /HPF Urine Bacteria (None Seen) Hyaline Casts (0-2) /LPF Urine Opiates Screen (Not Detect) Urine Fentanyl Screen (Not Detect) Ur Barbiturates Screen (Not Detect) Ur Phencyclidine Scrn (Not Detect) Ur Amphetamines Screen (Not Detect) U Benzodiazepines Scrn (Not Detect) Urine Cocaine Screen (Not Detect) U Marijuana (THC) Screen (Not Detect) Ethyl Alcohol mg/dL Acetone, Qual (Negative) Influenza Type A (PCR) (Negative) Influenza Type B (PCR) (Negative) RSV RNA Qual (PCR) (Negative) SARS-CoV-2 RNA (RT-PCR) (Negative) <LOUISA Galaviz - Last Filed: 05/04/22 19:12> Lab Results 05/04/22 05/04/22 05/04/22 Range/Units 19:09 19:12 19:15 WBC (4.8-10.8) X10*3/uL RBC (4.60-5.80) X10*6/uL Hgb (14.0-18.0) g/dl Hct (42.0-52.0) % MCV (80.0-98.0) fL MCH (27.0-33.0) pg MCHC (31.0-36.0) g/dl RDW (11.0-16.0) % Plt Count (160-400) X10*3/uL MPV (9.4-12.4) fL Immature Gran % (Auto) (0.0-0.4) % Neut % (Auto) (45-73) % Lymph % (Auto) (20-40) % [place] % (Auto) (2-11) % Eos % (Auto) (0-4) % Baso % (Auto) (0-2) % Lymph # (Auto) (1.2-4.9) X10*3/uL [place] # (Auto) (0.1-1.2) X10*3/uL Eos # (Auto) (0.0-0.4) X10*3/uL Baso # (Auto) (0.0-0.2) X10*3/uL Abs Immat Gran (auto) (0.00-0.03) X10*3/uL Absolute Neuts (auto) (2.0-8.3) x10*3/uL Absolute Nucleated RBC (0.0-0.012) X10*3/uL Nucleated RBC % (auto) (0.0-0.2) /100WBC PT (10.0-13.1) SEC INR (0.9-1.1) VBG pH (7.32-7.43) VBG pCO2 mmHg VBG pO2 mmHg VBG HCO3 (22-26) mmol/L VBG O2 Saturation % VBG Base Excess mmol/L Sodium (135-145) mmol/L Potassium (3.3-5.1) mmol/L Chloride (96-108) mmol/L Carbon Dioxide (22-29) mmol/L Anion Gap (12-20) BUN (9-16) mg/dL Creatinine (0.5-1.4) mg/dL Estim Creat Clear Calc Estimated GFR POC Glucose > 600 H* > 600 H* > 600 H* (60-115) mg/dL Random Glucose (60-115) mg/dL Lactic Acid (0.5-2.0) mmol/L Lactic Acid F/U @ 2Hr (0.5-2.0) mmol/L Calcium (8.4-10.2) mg/dL Phosphorus (2.7-4.5) mg/dL Magnesium (1.6-2.6) mg/dL Total Bilirubin (0.0-1.0) mg/dL AST (5-37) U/L ALT (0-40) U/L Alkaline Phosphatase (39-117) U/L Troponin I High Sens (<3.5-35.0) ng/L Total Protein (6.5-8.0) g/dL Albumin (3.5-5.0) g/dL Urine Color Urine Appearance Urine pH (5.0-9.0) Ur Specific [place] (1.005-1.025) Urine Protein (Neg-Trace) mg/dL Urine Glucose (UA) (Negative) mg/dL Urine Ketones (Negative) mg/dL Urine Blood (Negative) Urine Nitrite (Negative) Ur Leukocyte Esterase (Negative) Urine RBC (0-2) /HPF Urine WBC (0-5) /HPF Ur Squamous Epith Cells (0-2) /HPF Urine Bacteria (None Seen) Hyaline Casts (0-2) /LPF Urine Opiates Screen (Not Detect) Urine Fentanyl Screen (Not Detect) Ur Barbiturates Screen (Not Detect) Ur Phencyclidine Scrn (Not Detect) Ur Amphetamines Screen (Not Detect) U Benzodiazepines Scrn (Not Detect) Urine Cocaine Screen (Not Detect) U Marijuana (THC) Screen (Not Detect) Ethyl Alcohol mg/dL Acetone, Qual (Negative) Influenza Type A (PCR) (Negative) Influenza Type B (PCR) (Negative) RSV RNA Qual (PCR) (Negative) SARS-CoV-2 RNA (RT-PCR) (Negative) 05/04/22 05/04/22 05/04/22 Range/Units 20:15 20:15 20:16 WBC (4.8-10.8) X10*3/uL RBC (4.60-5.80) X10*6/uL Hgb (14.0-18.0) g/dl Hct (42.0-52.0) % MCV (80.0-98.0) fL MCH (27.0-33.0) pg MCHC (31.0-36.0) g/dl RDW (11.0-16.0) % Plt Count (160-400) X10*3/uL MPV (9.4-12.4) fL Immature Gran % (Auto) (0.0-0.4) % Neut % (Auto) (45-73) % Lymph % (Auto) (20-40) % [place] % (Auto) (2-11) % Eos % (Auto) (0-4) % Baso % (Auto) (0-2) % Lymph # (Auto) (1.2-4.9) X10*3/uL [place] # (Auto) (0.1-1.2) X10*3/uL Eos # (Auto) (0.0-0.4) X10*3/uL Baso # (Auto) (0.0-0.2) X10*3/uL Abs Immat Gran (auto) (0.00-0.03) X10*3/uL Absolute Neuts (auto) (2.0-8.3) x10*3/uL Absolute Nucleated RBC (0.0-0.012) X10*3/uL Nucleated RBC % (auto) (0.0-0.2) /100WBC PT 11.7 (10.0-13.1) SEC INR 1.0 (0.9-1.1) VBG pH (7.32-7.43) VBG pCO2 mmHg VBG pO2 mmHg VBG HCO3 (22-26) mmol/L VBG O2 Saturation % VBG Base Excess mmol/L Sodium (135-145) mmol/L Potassium (3.3-5.1) mmol/L Chloride (96-108) mmol/L Carbon Dioxide (22-29) mmol/L Anion Gap (12-20) BUN (9-16) mg/dL Creatinine (0.5-1.4) mg/dL Estim Creat Clear Calc Estimated GFR POC Glucose (60-115) mg/dL Random Glucose (60-115) mg/dL Lactic Acid (0.5-2.0) mmol/L Lactic Acid F/U @ 2Hr (0.5-2.0) mmol/L Calcium (8.4-10.2) mg/dL Phosphorus (2.7-4.5) mg/dL Magnesium (1.6-2.6) mg/dL Total Bilirubin (0.0-1.0) mg/dL AST (5-37) U/L ALT (0-40) U/L Alkaline Phosphatase (39-117) U/L Troponin I High Sens 8.7 (<3.5-35.0) ng/L Total Protein (6.5-8.0) g/dL Albumin (3.5-5.0) g/dL Urine Color Urine Appearance Urine pH (5.0-9.0) Ur Specific [place] (1.005-1.025) Urine Protein (Neg-Trace) mg/dL Urine Glucose (UA) (Negative) mg/dL Urine Ketones (Negative) mg/dL Urine Blood (Negative) Urine Nitrite (Negative) Ur Leukocyte Esterase (Negative) Urine RBC (0-2) /HPF Urine WBC (0-5) /HPF Ur Squamous Epith Cells (0-2) /HPF Urine Bacteria (None Seen) Hyaline Casts (0-2) /LPF Urine Opiates Screen (Not Detect) Urine Fentanyl Screen (Not Detect) Ur Barbiturates Screen (Not Detect) Ur Phencyclidine Scrn (Not Detect) Ur Amphetamines Screen (Not Detect) U Benzodiazepines Scrn (Not Detect) Urine Cocaine Screen (Not Detect) U Marijuana (THC) Screen (Not Detect) Ethyl Alcohol mg/dL Acetone, Qual (Negative) Influenza Type A (PCR) NEGATIVE (Negative) Influenza Type B (PCR) NEGATIVE (Negative) RSV RNA Qual (PCR) NEGATIVE (Negative) SARS-CoV-2 RNA (RT-PCR) NEGATIVE (Negative) 05/04/22 05/04/22 05/04/22 Range/Units 20:16 20:17 20:17 WBC 8.7 (4.8-10.8) X10*3/uL RBC 5.48 (4.60-5.80) X10*6/uL Hgb 15.1 (14.0-18.0) g/dl Hct 55.1 H (42.0-52.0) % MCV 100.5 H (80.0-98.0) fL MCH 27.6 (27.0-33.0) pg MCHC 27.4 L (31.0-36.0) g/dl RDW 13.3 (11.0-16.0) % Plt Count 235 (160-400) X10*3/uL MPV 11.5 (9.4-12.4) fL Immature Gran % (Auto) 0.6 H (0.0-0.4) % Neut % (Auto) 83.6 H (45-73) % Lymph % (Auto) 9.0 L (20-40) % [place] % (Auto) 6.4 (2-11) % Eos % (Auto) 0.1 (0-4) % Baso % (Auto) 0.3 (0-2) % Lymph # (Auto) 0.8 L (1.2-4.9) X10*3/uL [place] # (Auto) 0.6 (0.1-1.2) X10*3/uL Eos # (Auto) 0.0 (0.0-0.4) X10*3/uL Baso # (Auto) 0.0 (0.0-0.2) X10*3/uL Abs Immat Gran (auto) 0.05 H (0.00-0.03) X10*3/uL Absolute Neuts (auto) 7.3 (2.0-8.3) x10*3/uL Absolute Nucleated RBC 0.000 (0.0-0.012) X10*3/uL Nucleated RBC % (auto) 0.0 (0.0-0.2) /100WBC PT (10.0-13.1) SEC INR (0.9-1.1) VBG pH (7.32-7.43) VBG pCO2 mmHg VBG pO2 mmHg VBG HCO3 (22-26) mmol/L VBG O2 Saturation % VBG Base Excess mmol/L Sodium 127 L (135-145) mmol/L Potassium 5.9 H (3.3-5.1) mmol/L Chloride 82 L (96-108) mmol/L Carbon Dioxide 19 L (22-29) mmol/L Anion Gap 32 H (12-20) BUN 31 H (9-16) mg/dL Creatinine 2.81 H (0.5-1.4) mg/dL Estim Creat Clear Calc 31.4 Estimated GFR 25 POC Glucose (60-115) mg/dL Random Glucose 1695 H* (60-115) mg/dL Lactic Acid (0.5-2.0) mmol/L Lactic Acid F/U @ 2Hr (0.5-2.0) mmol/L Calcium 9.9 (8.4-10.2) mg/dL Phosphorus 4.6 H (2.7-4.5) mg/dL Magnesium 3.1 H (1.6-2.6) mg/dL Total Bilirubin 0.8 (0.0-1.0) mg/dL AST 71 H (5-37) U/L ALT 126 H (0-40) U/L Alkaline Phosphatase 194 H (39-117) U/L Troponin I High Sens (<3.5-35.0) ng/L Total Protein 7.3 (6.5-8.0) g/dL Albumin 4.1 (3.5-5.0) g/dL Urine Color Urine Appearance Urine pH (5.0-9.0) Ur Specific [place] (1.005-1.025) Urine Protein (Neg-Trace) mg/dL Urine Glucose (UA) (Negative) mg/dL Urine Ketones (Negative) mg/dL Urine Blood (Negative) Urine Nitrite (Negative) Ur Leukocyte Esterase (Negative) Urine RBC (0-2) /HPF Urine WBC (0-5) /HPF Ur Squamous Epith Cells (0-2) /HPF Urine Bacteria (None Seen) Hyaline Casts (0-2) /LPF Urine Opiates Screen (Not Detect) Urine Fentanyl Screen (Not Detect) Ur Barbiturates Screen (Not Detect) Ur Phencyclidine Scrn (Not Detect) Ur Amphetamines Screen (Not Detect) U Benzodiazepines Scrn (Not Detect) Urine Cocaine Screen (Not Detect) U Marijuana (THC) Screen (Not Detect) Ethyl Alcohol < 10 mg/dL Acetone, Qual Small H (Negative) Influenza Type A (PCR) (Negative) Influenza Type B (PCR) (Negative) RSV RNA Qual (PCR) (Negative) SARS-CoV-2 RNA (RT-PCR) (Negative) 05/04/22 05/04/22 05/04/22 Range/Units 20:17 20:27 20:36 WBC (4.8-10.8) X10*3/uL RBC (4.60-5.80) X10*6/uL Hgb (14.0-18.0) g/dl Hct (42.0-52.0) % MCV (80.0-98.0) fL MCH (27.0-33.0) pg MCHC (31.0-36.0) g/dl RDW (11.0-16.0) % Plt Count (160-400) X10*3/uL MPV (9.4-12.4) fL Immature Gran % (Auto) (0.0-0.4) % Neut % (Auto) (45-73) % Lymph % (Auto) (20-40) % [place] % (Auto) (2-11) % Eos % (Auto) (0-4) % Baso % (Auto) (0-2) % Lymph # (Auto) (1.2-4.9) X10*3/uL [place] # (Auto) (0.1-1.2) X10*3/uL Eos # (Auto) (0.0-0.4) X10*3/uL Baso # (Auto) (0.0-0.2) X10*3/uL Abs Immat Gran (auto) (0.00-0.03) X10*3/uL Absolute Neuts (auto) (2.0-8.3) x10*3/uL Absolute Nucleated RBC (0.0-0.012) X10*3/uL Nucleated RBC % (auto) (0.0-0.2) /100WBC PT (10.0-13.1) SEC INR (0.9-1.1) VBG pH 7.27 L (7.32-7.43) VBG pCO2 51 mmHg VBG pO2 45 mmHg VBG HCO3 24 (22-26) mmol/L VBG O2 Saturation 65.0 % VBG Base Excess -3.2 mmol/L Sodium (135-145) mmol/L Potassium (3.3-5.1) mmol/L Chloride (96-108) mmol/L Carbon Dioxide (22-29) mmol/L Anion Gap (12-20) BUN (9-16) mg/dL Creatinine (0.5-1.4) mg/dL Estim Creat Clear Calc Estimated GFR POC Glucose (60-115) mg/dL Random Glucose (60-115) mg/dL Lactic Acid 4.2 H* (0.5-2.0) mmol/L Lactic Acid F/U @ 2Hr (0.5-2.0) mmol/L Calcium (8.4-10.2) mg/dL Phosphorus (2.7-4.5) mg/dL Magnesium (1.6-2.6) mg/dL Total Bilirubin (0.0-1.0) mg/dL AST (5-37) U/L ALT (0-40) U/L Alkaline Phosphatase (39-117) U/L Troponin I High Sens (<3.5-35.0) ng/L Total Protein (6.5-8.0) g/dL Albumin (3.5-5.0) g/dL Urine Color Yellow Urine Appearance Clear Urine pH 5.0 (5.0-9.0) Ur Specific [place] >= 1.030 H (1.005-1.025) Urine Protein Negative (Neg-Trace) mg/dL Urine Glucose (UA) >=1000 H (Negative) mg/dL Urine Ketones 15 (Negative) mg/dL Urine Blood Negative (Negative) Urine Nitrite Negative (Negative) Ur Leukocyte Esterase Negative (Negative) Urine RBC 0-2 (0-2) /HPF Urine WBC 0-5 (0-5) /HPF Ur Squamous Epith Cells 0-2 (0-2) /HPF Urine Bacteria None Seen (None Seen) Hyaline Casts 0-2 (0-2) /LPF Urine Opiates Screen (Not Detect) Urine Fentanyl Screen (Not Detect) Ur Barbiturates Screen (Not Detect) Ur Phencyclidine Scrn (Not Detect) Ur Amphetamines Screen (Not Detect) U Benzodiazepines Scrn (Not Detect) Urine Cocaine Screen (Not Detect) U Marijuana (THC) Screen (Not Detect) Ethyl Alcohol mg/dL Acetone, Qual (Negative) Influenza Type A (PCR) (Negative) Influenza Type B (PCR) (Negative) RSV RNA Qual (PCR) (Negative) SARS-CoV-2 RNA (RT-PCR) (Negative) 05/04/22 05/04/22 05/04/22 Range/Units 20:36 21:56 21:57 WBC (4.8-10.8) X10*3/uL RBC (4.60-5.80) X10*6/uL Hgb (14.0-18.0) g/dl Hct (42.0-52.0) % MCV (80.0-98.0) fL MCH (27.0-33.0) pg MCHC (31.0-36.0) g/dl RDW (11.0-16.0) % Plt Count (160-400) X10*3/uL MPV (9.4-12.4) fL Immature Gran % (Auto) (0.0-0.4) % Neut % (Auto) (45-73) % Lymph % (Auto) (20-40) % [place] % (Auto) (2-11) % Eos % (Auto) (0-4) % Baso % (Auto) (0-2) % Lymph # (Auto) (1.2-4.9) X10*3/uL [place] # (Auto) (0.1-1.2) X10*3/uL Eos # (Auto) (0.0-0.4) X10*3/uL Baso # (Auto) (0.0-0.2) X10*3/uL Abs Immat Gran (auto) (0.00-0.03) X10*3/uL Absolute Neuts (auto) (2.0-8.3) x10*3/uL Absolute Nucleated RBC (0.0-0.012) X10*3/uL Nucleated RBC % (auto) (0.0-0.2) /100WBC PT (10.0-13.1) SEC INR (0.9-1.1) VBG pH (7.32-7.43) VBG pCO2 mmHg VBG pO2 mmHg VBG HCO3 (22-26) mmol/L VBG O2 Saturation % VBG Base Excess mmol/L Sodium (135-145) mmol/L Potassium (3.3-5.1) mmol/L Chloride (96-108) mmol/L Carbon Dioxide (22-29) mmol/L Anion Gap (12-20) BUN (9-16) mg/dL Creatinine (0.5-1.4) mg/dL Estim Creat Clear Calc Estimated GFR POC Glucose > 600 H* > 600 H* (60-115) mg/dL Random Glucose (60-115) mg/dL Lactic Acid (0.5-2.0) mmol/L Lactic Acid F/U @ 2Hr (0.5-2.0) mmol/L Calcium (8.4-10.2) mg/dL Phosphorus (2.7-4.5) mg/dL Magnesium (1.6-2.6) mg/dL Total Bilirubin (0.0-1.0) mg/dL AST (5-37) U/L ALT (0-40) U/L Alkaline Phosphatase (39-117) U/L Troponin I High Sens (<3.5-35.0) ng/L Total Protein (6.5-8.0) g/dL Albumin (3.5-5.0) g/dL Urine Color Urine Appearance Urine pH (5.0-9.0) Ur Specific [place] (1.005-1.025) Urine Protein (Neg-Trace) mg/dL Urine Glucose (UA) (Negative) mg/dL Urine Ketones (Negative) mg/dL Urine Blood (Negative) Urine Nitrite (Negative) Ur Leukocyte Esterase (Negative) Urine RBC (0-2) /HPF Urine WBC (0-5) /HPF Ur Squamous Epith Cells (0-2) /HPF Urine Bacteria (None Seen) Hyaline Casts (0-2) /LPF Urine Opiates Screen Not Detected (Not Detect) Urine Fentanyl Screen Not Detected (Not Detect) Ur Barbiturates Screen Not Detected (Not Detect) Ur Phencyclidine Scrn Not Detected (Not Detect) Ur Amphetamines Screen Not Detected (Not Detect) U Benzodiazepines Scrn Not Detected (Not Detect) Urine Cocaine Screen Not Detected (Not Detect) U Marijuana (THC) Screen Not Detected (Not Detect) Ethyl Alcohol mg/dL Acetone, Qual (Negative) Influenza Type A (PCR) (Negative) Influenza Type B (PCR) (Negative) RSV RNA Qual (PCR) (Negative) SARS-CoV-2 RNA (RT-PCR) (Negative) 05/04/22 05/04/22 Range/Units 22:30 22:30 WBC (4.8-10.8) X10*3/uL RBC (4.60-5.80) X10*6/uL Hgb (14.0-18.0) g/dl Hct (42.0-52.0) % MCV (80.0-98.0) fL MCH (27.0-33.0) pg MCHC (31.0-36.0) g/dl RDW (11.0-16.0) % Plt Count (160-400) X10*3/uL MPV (9.4-12.4) fL Immature Gran % (Auto) (0.0-0.4) % Neut % (Auto) (45-73) % Lymph % (Auto) (20-40) % [place] % (Auto) (2-11) % Eos % (Auto) (0-4) % Baso % (Auto) (0-2) % Lymph # (Auto) (1.2-4.9) X10*3/uL [place] # (Auto) (0.1-1.2) X10*3/uL Eos # (Auto) (0.0-0.4) X10*3/uL Baso # (Auto) (0.0-0.2) X10*3/uL Abs Immat Gran (auto) (0.00-0.03) X10*3/uL Absolute Neuts (auto) (2.0-8.3) x10*3/uL Absolute Nucleated RBC (0.0-0.012) X10*3/uL Nucleated RBC % (auto) (0.0-0.2) /100WBC PT (10.0-13.1) SEC INR (0.9-1.1) VBG pH (7.32-7.43) VBG pCO2 mmHg VBG pO2 mmHg VBG HCO3 (22-26) mmol/L VBG O2 Saturation % VBG Base Excess mmol/L Sodium (135-145) mmol/L Potassium (3.3-5.1) mmol/L Chloride (96-108) mmol/L Carbon Dioxide (22-29) mmol/L Anion Gap (12-20) BUN (9-16) mg/dL Creatinine (0.5-1.4) mg/dL Estim Creat Clear Calc Estimated GFR POC Glucose (60-115) mg/dL Random Glucose 891 H* (60-115) mg/dL Lactic Acid (0.5-2.0) mmol/L Lactic Acid F/U @ 2Hr 3.7 H* (0.5-2.0) mmol/L Calcium (8.4-10.2) mg/dL Phosphorus (2.7-4.5) mg/dL Magnesium (1.6-2.6) mg/dL Total Bilirubin (0.0-1.0) mg/dL AST (5-37) U/L ALT (0-40) U/L Alkaline Phosphatase (39-117) U/L Troponin I High Sens (<3.5-35.0) ng/L Total Protein (6.5-8.0) g/dL Albumin (3.5-5.0) g/dL Urine Color Urine Appearance Urine pH (5.0-9.0) Ur Specific [place] (1.005-1.025) Urine Protein (Neg-Trace) mg/dL Urine Glucose (UA) (Negative) mg/dL Urine Ketones (Negative) mg/dL Urine Blood (Negative) Urine Nitrite (Negative) Ur Leukocyte Esterase (Negative) Urine RBC (0-2) /HPF Urine WBC (0-5) /HPF Ur Squamous Epith Cells (0-2) /HPF Urine Bacteria (None Seen) Hyaline Casts (0-2) /LPF Urine Opiates Screen (Not Detect) Urine Fentanyl Screen (Not Detect) Ur Barbiturates Screen (Not Detect) Ur Phencyclidine Scrn (Not Detect) Ur Amphetamines Screen (Not Detect) U Benzodiazepines Scrn (Not Detect) Urine Cocaine Screen (Not Detect) U Marijuana (THC) Screen (Not Detect) Ethyl Alcohol mg/dL Acetone, Qual (Negative) Influenza Type A (PCR) (Negative) Influenza Type B (PCR) (Negative) RSV RNA Qual (PCR) (Negative) SARS-CoV-2 RNA (RT-PCR) (Negative) <LOUISA Araiza - Last Filed: 05/05/22 02:38> Independent Interpretation I performed an independent interpretation of an: EKG <LOUISA Araiza - Last Filed: 05/05/22 02:38> Interpretation: Vent. Rate: 119 BPM ? ? Atrial Rate: 119 BPM P-R Int: 122 ms? QRS Dur: 092 ms QT Int: 324 ms ? ? ? P-R-T Axes: 046 -37 012 degrees QTc Int: 455 ms ? Sinus tachycardia Left axis deviation Moderate voltage criteria for LVH, may be normal variant ( R in aVL , Post product ) Abnormal ECG No previous ECGs available DD/ 193 <LOUISA Araiza - Last Filed: 05/05/22 02:38> Radiology Impression Discussion of test interpretation with radiology: I have reviewed the radiologist's reading. <LOUISA Araiza - Last Filed: 05/05/22 02:38> Radiologist Impression: EXAMINATION: XR CHEST CLINICAL INFORMATION: Altered mental status COMPARISON: None TECHNIQUE: Frontal view of the chest was obtained. FINDINGS: No significant abnormality is noted involving the heart, lungs, mediastinum, bony thorax or soft tissues. XR/XR chest 1V IMPRESSION: Unremarkable examination. Dictated By: Julio Hightower MD Signed By: Electronically signed by Julio Hightower MD 05/04/222011 <LOUISA Araiza - Last Filed: 05/05/22 02:38> Independent Historian Clinical information obtained from an independent historian. History obtained from or confirmed by: Parent (father) <LOUISA Araiza - Last Filed: 05/05/22 02:38> Critical Care Time Critical Care Time Critical Care Time: Yes <LOUISA Araiza - Last Filed: 05/05/22 02:38> Total Critical Care Time: 45 <LOUISA Araiza - Last Filed: 05/05/22 02:38> Attestation: I spent 45 minutes of Critical Care Time with this patient. This does not include time spent on separately reported billable procedures. <LOUISA Araiza - Last Filed: 05/05/22 02:38> Discharge Plan Discharge Clinical Impression: Hyperosmolar hyperglycemic state (HHS), Hyponatremia, Hyperkalemia <LOUISA Galaviz - Last Filed: 05/04/22 19:12> Patient Disposition: Admitted As Inpatient <LOUISA Galaviz - Last Filed: 05/04/22 19:12> Interventions: Admission Worksheet (ED) Last Done: 05/05/22 00:28 <LOUISA Galaviz - Last Filed: 05/04/22 19:12> Discharge Date/Time: 05/05/22 00:29 <LOUISA Galaviz - Last Filed: 05/04/22 19:12>
--- NOTE | 2022-05-04 19:06 | ECG_ITS ---
Test Reason : GENERAL MEDICAL Blood Pressure : / mmHG Vent. Rate : 119 BPM Atrial Rate : 119 BPM P-R Int : 122 ms QRS Dur : 092 ms QT Int : 324 ms P-R-T Axes : 046 -37 012 degrees QTc Int : 455 ms Sinus tachycardia Left axis deviation Moderate voltage criteria for LVH, may be normal variant ( R in aVL , Best product ) Abnormal ECG No previous ECGs available Referred By: Elizabeth Mantilla Electronically Signed By:Dom Carrillo
[2022-05-04 19:19] LABS: Glucose, Whole Blood > 600 mg/dL (60-115)
[2022-05-04 19:19] LABS: Glucose, Whole Blood > 600 mg/dL (60-115)
[2022-05-04 19:19] LABS: Glucose, Whole Blood > 600 mg/dL (60-115)
[2022-05-04 20:24] LABS: MANUAL DIFF FLAG NO
[2022-05-04] MEDS: Insulin Regular, Human 100 UNIT/ML 3 ML VIAL 8 UNIT IVPUSH (20:29)
[2022-05-04] MEDS: 0.9 % Sodium Chloride 1,000 ML 999 ML IVCONT ×2 (20:31→20:32)
[2022-05-04 20:32] LABS: Venous Blood Gas Refer to POC result
[2022-05-04 20:33] LABS: Basophils Percent Auto 0.3 % (0-2); Eosinophils Percent Auto 0.1 % (0-4); Hemoglobin 15.1 g/dl (14.0-18.0); Imm Gran Abs Auto 0.05 X10*3/uL (0.00-0.03); Imm Gran Pct Auto 0.6 % (0.0-0.4); Lymphocytes Absolute Auto 0.8 X10*3/uL (1.2-4.9); Mean Corpuscular HGB Conc 27.4 g/dl (31.0-36.0); Mean Corpuscular Hemoglobin 27.6 pg (27.0-33.0); Mean Corpuscular Volume 100.5 fL (80.0-98.0); Mean Platelet Volume 11.5 fL (9.4-12.4); Monocytes Absolute Auto 0.6 X10*3/uL (0.1-1.2); Monocytes Percent Auto 6.4 % (2-11); Neutrophils Absolute Auto 7.3 x10*3/uL (2.0-8.3); Neutrophils Percent Auto 83.6 % (45-73); Platelet Count 235 X10*3/uL (160-400); Red Blood Count 5.48 X10*6/uL (4.60-5.80); Red Cell Distribution Width 13.3 % (11.0-16.0); White Blood Count 8.7 X10*3/uL (4.8-10.8)
[2022-05-04 20:34] LABS: VBG Base Excess -3.2 mmol/L; VBG HCO3 24 mmol/L (22-26); VBG pCO2 51 mmHg; VBG pH 7.27 (7.32-7.43); VBG pO2 45 mmHg
[2022-05-04 20:38] LABS: Acetone, serum QL Small (Negative)
[2022-05-04 20:44] LABS: Alanine Aminotransferase 126 U/L (0-40); Albumin Level 4.1 g/dL (3.5-5.0); Alkaline Phosphatase 194 U/L (39-117); Anion Gap 32 (12-20); Aspartate Amino Transferase 71 U/L (5-37); Bilirubin Total 0.8 mg/dL (0.0-1.0); Blood Urea Nitrogen 31 mg/dL (9-16); Calcium 9.9 mg/dL (8.4-10.2); Carbon Dioxide 19 mmol/L (22-29); Chloride 82 mmol/L (96-108); Creatinine Clr Calc Pharmacy 31.4; Estimated Glomerular Filt Rate 25; Ethanol < 10 mg/dL; Magnesium 3.1 mg/dL (1.6-2.6); Phosphorus 4.6 mg/dL (2.7-4.5); Potassium 5.9 mmol/L (3.3-5.1); Sodium 127 mmol/L (135-145); Total Protein 7.3 g/dL (6.5-8.0)
[2022-05-04 20:45] VITALS: BP 161/104; PULSE 120; RESP 20; O2SAT 96
[2022-05-04 20:47] LABS: Troponin-I High Sensitivity 8.7 ng/L (<3.5-35.0)
[2022-05-04 20:48] LABS: Hematocrit 55.1 % (42.0-52.0)
[2022-05-04 20:50] LABS: Appearance Urine Clear; Color Urine Yellow; Glucose Urine UA >=1000 mg/dL (Negative); Leukocyte Esterase Urine Negative (Negative); Nitrite Urine Negative (Negative); Specific Gravity - Urine >= 1.030 (1.005-1.025); UMIC TRIGGER UACC YES; Urine Blood Negative (Negative); Urine Ketones 15 mg/dL (Negative); Urine Protein Negative (Neg-Trace)
--- NOTE | 2022-05-04 20:50 | PC.NURSE ---
insulin drip not to be started at this time per car body inspector. will wait will labs result and ivf infused. pt did receive his iv insulun 8 units.
[2022-05-04 20:51] LABS: Prothrombin Time 11.7 SEC (10.0-13.1)
[2022-05-04 20:52] LABS: Glucose Random 1695 mg/dL (60-115)
[2022-05-04 20:53] LABS: Lactic Acid 4.2 mmol/L (0.5-2.0)
--- NOTE | 2022-05-04 20:53 | PC.NURSE ---
Notified KILLIAN Montogmery of critical labs of Poc 1,695 and a lactic of 4.2. Notified LOUISA Wood
[2022-05-04] MEDS: Insulin Regular/NS 100 UNIT/100 ML PLAST..BAG 7 UNIT IVCONT (20:54)
[2022-05-04 21:04] LABS: Amphetamine Screen Urine Not Detected (Not Detect); Barbiturates, Urine Not Detected (Not Detect); Benzodiazepines Screen Urine Not Detected (Not Detect); Cannabinoid Screen Urine Not Detected (Not Detect); Cocaine Screen Urine Not Detected (Not Detect); Fentanyl, urine Not Detected (Not Detect); Opiate Screen Urine Not Detected (Not Detect); Phencyclidine Screen Urine Not Detected (Not Detect)
[2022-05-04 21:04] LABS: Influenza A PCR NEGATIVE (Negative); Influenza B PCR NEGATIVE (Negative); Resp Syncy Virus RNA Qual PCR NEGATIVE (Negative); SARS COV2 PCR INHOUSE NEGATIVE (Negative)
[2022-05-04 21:11] LABS: Bacteria Urine None Seen (None Seen); Hyaline Casts Urine 0-2 /LPF (0-2); RBC Urine 0-2 /HPF (0-2); Squamous Epithelial Cell Urine 0-2 /HPF (0-2); WBC Urine 0-5 /HPF (0-5)
[2022-05-04 22:03] LABS: Glucose, Whole Blood > 600 mg/dL (60-115)
--- NOTE | 2022-05-04 22:09 | PC.NURSE ---
Lesvia made aware of current poc blood glucose still over 600. per protocal to call md and to increase rate, this is on hold due to Avel is coming to see the pt and to wait for orders. Lesvia is place LR fluid orders at this time.
[2022-05-04 22:22] LABS: Reflex Lactate? Lactic Acid Added
[2022-05-04 23:05] LABS: ~Lactic Acid-LAB USE ONLY 3.7 mmol/L (0.5-2.0)
[2022-05-04 23:06] LABS: Glucose Random 891 mg/dL (60-115)
[2022-05-04 23:10] VITALS: BP 145/100; PULSE 122; RESP 15; TEMP 36.8; O2SAT 97
--- NOTE | 2022-05-04 23:14 | P.HPCC_ITS ---
History of Present Illness Date of Service: 05/04/22 Attending physician on admission: Trent Levy Chief Complaint: Altered mental status and weakness 42-year-old male who was a diabetic and I have no medication list for him and when I asked him why he came in what he felt he just says sugar he clearly is confused even though he is oriented to name and to place Review of Systems Review of Systems: Yes Unobtainable due to mental status PMFSH Social History Social History Advance Directives: No Advance Directives Information Provided: No Meds Allergies Allergy/AdvReac Type Severity Reaction Status Date / Time No Known Allergies Allergy Unverified 02/02/20 15:08 Active Medications: Current Medications Dextrose (Dextrose 50 % 25 Gm/50 Ml Syringe) 25 gm IVPUSH Q30M PRN PRN Reason: BG < 70 Famotidine (Famotidine/Pf 20 Mg/2 Ml Vial) 20 mg IVPUSH BID [facility] Heparin Sodium (Porcine) (Heparin Sodium,Porcine 5,000 Unit/Ml Vial) 5,000 unit SUBCUT Q8H [facility] Insulin Human Regular (Myxredlin) 100 unit in 100 mls @ 7 mls/hr IVCONT .[id number] [facility]; Protocol Last Admin: 05/04/22 20:54 Dose: 7 unit/hr, 7 mls/hr Sodium Chloride (Sodium Chloride 0.45 %) 1,000 mls @ 250 mls/hr IVCONT .Q4H [facility] Pharmacy Consult (Consult Rx Perform Med Rec) 1 each MISCELLANE ONCE PRN PRN Reason: Consult order Sodium Chloride (0.9 % Sodium Chloride Flush 3 Ml Syringe) 3 ml IVFLUSH QSHIFT [facility] Physical Exam Vital Signs: Vital Signs: Last Vital Signs Temp 98.3 F 05/04/22 23:10 Pulse 122 H 05/04/22 23:10 Resp 15 05/04/22 23:10 BP 145/100 H 05/04/22 23:10 Pulse Ox 97 05/04/22 23:10 O2 Del Method 05/04/22 23:10 BMI result Body Mass Index 30.1 Patient is staring and clearly very hesitant in giving answers Skin color is normal there is no diaphoresis he is anicteric no palpable adenopathy no thyromegaly examination of dentition and throat appears to be norm al Abdomen is soft with no organomegaly Bedside echo cardiac exam 50% ejection fraction no segmental wall motion abnormality no primary valve or pericardial disease Chest is clear with no adventitious sounds and chest x-ray is clear Skin is intact no cellulitis no redness no swelling no acrocyanosis Results Labs CBC and Chem 7: 05/04/22 20:17 05/04/22 22:30 Labs: Laboratory Results - last 24 hr 05/04/22 05/04/22 05/04/22 19:09 19:12 19:15 MCV MCH MCHC RDW Plt Count MPV Immature Gran % (Auto) Neut % (Auto) Lymph % (Auto) [place] % (Auto) Eos % (Auto) Baso % (Auto) Lymph # (Auto) [place] # (Auto) Eos # (Auto) Baso # (Auto) Abs Immat Gran (auto) Absolute Neuts (auto) Absolute Nucleated RBC Nucleated RBC % (auto) PT INR VBG pH VBG pCO2 VBG pO2 VBG HCO3 VBG O2 Saturation VBG Base Excess Anion Gap Estim Creat Clear Calc Estimated GFR POC Glucose > 600 H* > 600 H* > 600 H* Random Glucose Lactic Acid Lactic Acid F/U @ 2Hr Calcium Phosphorus Magnesium Total Bilirubin AST ALT Alkaline Phosphatase Troponin I High Sens Total Protein Albumin Urine Color Urine Appearance Urine pH Ur Specific [place] Urine Protein Urine Glucose (UA) Urine Ketones Urine Blood Urine Nitrite Ur Leukocyte Esterase Urine RBC Urine WBC Ur Squamous Epith Cells Urine Bacteria Hyaline Casts Urine Opiates Screen Urine Fentanyl Screen Ur Barbiturates Screen Ur Phencyclidine Scrn Ur Amphetamines Screen U Benzodiazepines Scrn Urine Cocaine Screen U Marijuana (THC) Screen Ethyl Alcohol Acetone, Qual Influenza Type A (PCR) Influenza Type B (PCR) RSV RNA Qual (PCR) SARS-CoV-2 RNA (RT-PCR) 05/04/22 05/04/22 05/04/22 20:15 20:15 20:16 MCV MCH MCHC RDW Plt Count MPV Immature Gran % (Auto) Neut % (Auto) Lymph % (Auto) [place] % (Auto) Eos % (Auto) Baso % (Auto) Lymph # (Auto) [place] # (Auto) Eos # (Auto) Baso # (Auto) Abs Immat Gran (auto) Absolute Neuts (auto) Absolute Nucleated RBC Nucleated RBC % (auto) PT 11.7 INR 1.0 VBG pH VBG pCO2 VBG pO2 VBG HCO3 VBG O2 Saturation VBG Base Excess Anion Gap Estim Creat Clear Calc Estimated GFR POC Glucose Random Glucose Lactic Acid Lactic Acid F/U @ 2Hr Calcium Phosphorus Magnesium Total Bilirubin AST ALT Alkaline Phosphatase Troponin I High Sens 8.7 Total Protein Albumin Urine Color Urine Appearance Urine pH Ur Specific [place] Urine Protein Urine Glucose (UA) Urine Ketones Urine Blood Urine Nitrite Ur Leukocyte Esterase Urine RBC Urine WBC Ur Squamous Epith Cells Urine Bacteria Hyaline Casts Urine Opiates Screen Urine Fentanyl Screen Ur Barbiturates Screen Ur Phencyclidine Scrn Ur Amphetamines Screen U Benzodiazepines Scrn Urine Cocaine Screen U Marijuana (THC) Screen Ethyl Alcohol Acetone, Qual Influenza Type A (PCR) NEGATIVE Influenza Type B (PCR) NEGATIVE RSV RNA Qual (PCR) NEGATIVE SARS-CoV-2 RNA (RT-PCR) NEGATIVE 05/04/22 05/04/22 05/04/22 20:16 20:17 20:17 MCV 100.5 H MCH 27.6 MCHC 27.4 L RDW 13.3 Plt Count 235 MPV 11.5 Immature Gran % (Auto) 0.6 H Neut % (Auto) 83.6 H Lymph % (Auto) 9.0 L [place] % (Auto) 6.4 Eos % (Auto) 0.1 Baso % (Auto) 0.3 Lymph # (Auto) 0.8 L [place] # (Auto) 0.6 Eos # (Auto) 0.0 Baso # (Auto) 0.0 Abs Immat Gran (auto) 0.05 H Absolute Neuts (auto) 7.3 Absolute Nucleated RBC 0.000 Nucleated RBC % (auto) 0.0 PT INR VBG pH VBG pCO2 VBG pO2 VBG HCO3 VBG O2 Saturation VBG Base Excess Anion Gap 32 H Estim Creat Clear Calc 31.4 Estimated GFR 25 POC Glucose Random Glucose 1695 H* Lactic Acid Lactic Acid F/U @ 2Hr Calcium 9.9 Phosphorus 4.6 H Magnesium 3.1 H Total Bilirubin 0.8 AST 71 H ALT 126 H Alkaline Phosphatase 194 H Troponin I High Sens Total Protein 7.3 Albumin 4.1 Urine Color Urine Appearance Urine pH Ur Specific [place] Urine Protein Urine Glucose (UA) Urine Ketones Urine Blood Urine Nitrite Ur Leukocyte Esterase Urine RBC Urine WBC Ur Squamous Epith Cells Urine Bacteria Hyaline Casts Urine Opiates Screen Urine Fentanyl Screen Ur Barbiturates Screen Ur Phencyclidine Scrn Ur Amphetamines Screen U Benzodiazepines Scrn Urine Cocaine Screen U Marijuana (THC) Screen Ethyl Alcohol < 10 Acetone, Qual Small H Influenza Type A (PCR) Influenza Type B (PCR) RSV RNA Qual (PCR) SARS-CoV-2 RNA (RT-PCR) 05/04/22 05/04/22 05/04/22 20:17 20:27 20:36 MCV MCH MCHC RDW Plt Count MPV Immature Gran % (Auto) Neut % (Auto) Lymph % (Auto) [place] % (Auto) Eos % (Auto) Baso % (Auto) Lymph # (Auto) [place] # (Auto) Eos # (Auto) Baso # (Auto) Abs Immat Gran (auto) Absolute Neuts (auto) Absolute Nucleated RBC Nucleated RBC % (auto) PT INR VBG pH 7.27 L VBG pCO2 51 VBG pO2 45 VBG HCO3 24 VBG O2 Saturation 65.0 VBG Base Excess -3.2 Anion Gap Estim Creat Clear Calc Estimated GFR POC Glucose Random Glucose Lactic Acid 4.2 H* Lactic Acid F/U @ 2Hr Calcium Phosphorus Magnesium Total Bilirubin AST ALT Alkaline Phosphatase Troponin I High Sens Total Protein Albumin Urine Color Yellow Urine Appearance Clear Urine pH 5.0 Ur Specific [place] >= 1.030 H Urine Protein Negative Urine Glucose (UA) >=1000 H Urine Ketones 15 Urine Blood Negative Urine Nitrite Negative Ur Leukocyte Esterase Negative Urine RBC 0-2 Urine WBC 0-5 Ur Squamous Epith Cells 0-2 Urine Bacteria None Seen Hyaline Casts 0-2 Urine Opiates Screen Urine Fentanyl Screen Ur Barbiturates Screen Ur Phencyclidine Scrn Ur Amphetamines Screen U Benzodiazepines Scrn Urine Cocaine Screen U Marijuana (THC) Screen Ethyl Alcohol Acetone, Qual Influenza Type A (PCR) Influenza Type B (PCR) RSV RNA Qual (PCR) SARS-CoV-2 RNA (RT-PCR) 05/04/22 05/04/22 05/04/22 20:36 21:56 22:30 MCV MCH MCHC RDW Plt Count MPV Immature Gran % (Auto) Neut % (Auto) Lymph % (Auto) [place] % (Auto) Eos % (Auto) Baso % (Auto) Lymph # (Auto) [place] # (Auto) Eos # (Auto) Baso # (Auto) Abs Immat Gran (auto) Absolute Neuts (auto) Absolute Nucleated RBC Nucleated RBC % (auto) PT INR VBG pH VBG pCO2 VBG pO2 VBG HCO3 VBG O2 Saturation VBG Base Excess Anion Gap Estim Creat Clear Calc Estimated GFR POC Glucose > 600 H* Random Glucose 891 H* Lactic Acid Lactic Acid F/U @ 2Hr Calcium Phosphorus Magnesium Total Bilirubin AST ALT Alkaline Phosphatase Troponin I High Sens Total Protein Albumin Urine Color Urine Appearance Urine pH Ur Specific [place] Urine Protein Urine Glucose (UA) Urine Ketones Urine Blood Urine Nitrite Ur Leukocyte Esterase Urine RBC Urine WBC Ur Squamous Epith Cells Urine Bacteria Hyaline Casts Urine Opiates Screen Not Detected Urine Fentanyl Screen Not Detected Ur Barbiturates Screen Not Detected Ur Phencyclidine Scrn Not Detected Ur Amphetamines Screen Not Detected U Benzodiazepines Scrn Not Detected Urine Cocaine Screen Not Detected U Marijuana (THC) Screen Not Detected Ethyl Alcohol Acetone, Qual Influenza Type A (PCR) Influenza Type B (PCR) RSV RNA Qual (PCR) SARS-CoV-2 RNA (RT-PCR) 05/04/22 22:30 MCV MCH MCHC RDW Plt Count MPV Immature Gran % (Auto) Neut % (Auto) Lymph % (Auto) [place] % (Auto) Eos % (Auto) Baso % (Auto) Lymph # (Auto) [place] # (Auto) Eos # (Auto) Baso # (Auto) Abs Immat Gran (auto) Absolute Neuts (auto) Absolute Nucleated RBC Nucleated RBC % (auto) PT INR VBG pH VBG pCO2 VBG pO2 VBG HCO3 VBG O2 Saturation VBG Base Excess Anion Gap Estim Creat Clear Calc Estimated GFR POC Glucose Random Glucose Lactic Acid Lactic Acid F/U @ 2Hr 3.7 H* Calcium Phosphorus Magnesium Total Bilirubin AST ALT Alkaline Phosphatase Troponin I High Sens Total Protein Albumin Urine Color Urine Appearance Urine pH Ur Specific [place] Urine Protein Urine Glucose (UA) Urine Ketones Urine Blood Urine Nitrite Ur Leukocyte Esterase Urine RBC Urine WBC Ur Squamous Epith Cells Urine Bacteria Hyaline Casts Urine Opiates Screen Urine Fentanyl Screen Ur Barbiturates Screen Ur Phencyclidine Scrn Ur Amphetamines Screen U Benzodiazepines Scrn Urine Cocaine Screen U Marijuana (THC) Screen Ethyl Alcohol Acetone, Qual Influenza Type A (PCR) Influenza Type B (PCR) RSV RNA Qual (PCR) SARS-CoV-2 RNA (RT-PCR) Imaging Radiologist's Impressions: Impressions Chest X-Ray 05/04/22 20:05 IMPRESSION: Unremarkable examination. Assessment and Plan (1) Hyperosmolar hyperglycemic state (HHS): Status: Acute (2) Altered mental status: Status: Acute (3) Hyponatremia: Status: Acute (4) Hyperkalemia: Status: Acute Plan Given that the corrected sodium is close to 157 will initiate aggressive fluid replacement with half normal saline in other words a hypoosmolar solution at a more aggressive rate of 250 cc/hour as we run IV insulin at 0.1 units/kilogram per hour and every 2-3 hours will get a repeat BMP to follow progress There is no apparent precipitating reason and cultures are pending Time Spent With Patient Time: Total time managing care of this patient today ____ minutes.
[2022-05-04 23:27] LABS: Glucose, Whole Blood > 600 mg/dL (60-115)
[2022-05-04 23:27] LABS: Glucose, Whole Blood > 600 mg/dL (60-115)
[2022-05-05] VITALS (24 sets, daily range): BP systolic 124–166; BP diastolic 67–130; PULSE 87–119; RESP 9–19; TEMP 36.7–37.7; O2SAT 89–98; BMI 29.9
[2022-05-05] MEDS: Sodium Chloride 0.45 % 1,000 ML 250 ML IVCONT ×2 (00:28→04:44)
[2022-05-05 00:38] LABS: Glucose Random 751 mg/dL (60-115)
[2022-05-05 00:43] LABS: Reflex Lactate? 2 Y
[2022-05-05] MEDS: Heparin Sodium,Porcine 5,000 UNIT/ML VIAL 5000 UNIT SUBCUT ×4 (00:46→21:55)
[2022-05-05] MEDS: 0.9 % Sodium Chloride Flush 3 ML SYRINGE IVFLUSH ×3 (00:46→17:02)
[2022-05-05] MEDS: Famotidine/PF 20 MG/2 ML VIAL IVPUSH ×3 (00:46→20:03)
[2022-05-05 00:57] LABS: Glucose, Whole Blood > 600 mg/dL (60-115)
[2022-05-05 01:27] LABS: Anion Gap 21 (12-20); Blood Urea Nitrogen 24 mg/dL (9-16); Calcium 9.9 mg/dL (8.4-10.2); Carbon Dioxide 23 mmol/L (22-29); Chloride 109 mmol/L (96-108); Creatinine Clr Calc Pharmacy 47.2; Estimated Glomerular Filt Rate 40; Glucose Random 666 mg/dL (60-115); Potassium 4.1 mmol/L (3.3-5.1); Sodium 149 mmol/L (135-145)
[2022-05-05 02:03] LABS: Glucose, Whole Blood 423 mg/dL (60-115)
[2022-05-05 03:01] LABS: Glucose, Whole Blood 375 mg/dL (60-115)
[2022-05-05 04:04] LABS: Glucose, Whole Blood 335 mg/dL (60-115)
[2022-05-05 04:59] LABS: Glucose, Whole Blood 276 mg/dL (60-115)
[2022-05-05] MEDS: KCl 20 mEq in 0.45% Sod 20 MEQ/1,000 ML IV.SOLN 150 MEQ IVCONT (05:01)
[2022-05-05] MEDS: Insulin Regular/NS 100 UNIT/100 ML PLAST..BAG 15 UNIT IVCONT (05:03)
[2022-05-05 05:18] LABS: VBG Base Excess 4.3 mmol/L; VBG HCO3 25 mmol/L (22-26); VBG pCO2 29 mmHg; VBG pH 7.55 (7.32-7.43); VBG pO2 61 mmHg
[2022-05-05 05:20] LABS: Venous Blood Gas Refer to POC result
[2022-05-05 05:21] LABS: MANUAL DIFF FLAG NO
[2022-05-05 05:23] LABS: Basophils Absolute Auto 0.1 X10*3/uL (0.0-0.2); Basophils Percent Auto 0.4 % (0-2); Eosinophils Absolute Auto 0.1 X10*3/uL (0.0-0.4); Eosinophils Percent Auto 0.6 % (0-4); Hemoglobin 14.8 g/dl (14.0-18.0); Imm Gran Abs Auto 0.04 X10*3/uL (0.00-0.03); Imm Gran Pct Auto 0.3 % (0.0-0.4); Lymphocytes Absolute Auto 2.9 X10*3/uL (1.2-4.9); Lymphocytes Percent Auto 24.9 % (20-40); Mean Corpuscular HGB Conc 33.6 g/dl (31.0-36.0); Mean Corpuscular Hemoglobin 27.9 pg (27.0-33.0); Mean Corpuscular Volume 82.9 fL (80.0-98.0); Mean Platelet Volume 10.5 fL (9.4-12.4); Monocytes Absolute Auto 0.7 X10*3/uL (0.1-1.2); Monocytes Percent Auto 6.4 % (2-11); Neutrophils Absolute Auto 7.8 x10*3/uL (2.0-8.3); Neutrophils Percent Auto 67.4 % (45-73); Platelet Count 229 X10*3/uL (160-400); Red Blood Count 5.31 X10*6/uL (4.60-5.80); Red Cell Distribution Width 13.1 % (11.0-16.0); White Blood Count 11.6 X10*3/uL (4.8-10.8)
--- NOTE | 2022-05-05 05:30 | ECG_ITS ---
Test Reason : st changes Blood Pressure : / mmHG Vent. Rate : 107 BPM Atrial Rate : 107 BPM P-R Int : 130 ms QRS Dur : 088 ms QT Int : 368 ms P-R-T Axes : 066 -11 -36 degrees QTc Int : 491 ms Sinus tachycardia T wave abnormality, consider lateral ischemia Abnormal ECG When compared to the previous EKG of Lateral T wave changes present Referred By: Trent Levy Electronically Signed By:Dom Carrillo
[2022-05-05 05:41] LABS: Alanine Aminotransferase 99 U/L (0-40); Albumin Level 3.8 g/dL (3.5-5.0); Alkaline Phosphatase 140 U/L (39-117); Anion Gap 14 (12-20); Aspartate Amino Transferase 33 U/L (5-37); Bilirubin Total 0.7 mg/dL (0.0-1.0); Blood Urea Nitrogen 22 mg/dL (9-16); Calcium 9.7 mg/dL (8.4-10.2); Carbon Dioxide 28 mmol/L (22-29); Chloride 113 mmol/L (96-108); Creatinine Clr Calc Pharmacy 61.8; Estimated Glomerular Filt Rate 54; Glucose Random 288 mg/dL (60-115); Phosphorus 1.3 mg/dL (2.7-4.5); Potassium 3.4 mmol/L (3.3-5.1); Sodium 152 mmol/L (135-145); Total Protein 6.6 g/dL (6.5-8.0)
[2022-05-05 06:02] LABS: Glucose, Whole Blood 222 mg/dL (60-115)
[2022-05-05 07:07] LABS: Glucose, Whole Blood 148 mg/dL (60-115)
[2022-05-05] MEDS: KCl 40 mEq in 5% Dex/0.45% Sod 40 MEQ/1,000 ML IV.SOLN 125 MEQ IVCONT (07:11)
[2022-05-05 07:15] LABS: Glucose, Whole Blood > 600 mg/dL (60-115)
[2022-05-05] MEDS: Potassium Phosphate/NS 15 MMOL/250 ML PLAST..BAG 62.5 MMOL IV (08:01)
--- NOTE | 2022-05-05 08:03 | PHA.MEDREC ---
Pharmacy Consult ? Medication Reconciliation Pharmacy has completed the medication reconciliation. Patient on no known meds
[2022-05-05 08:25] LABS: Glucose, Whole Blood 163 mg/dL (60-115)
[2022-05-05] MEDS: Dextrose 5 % 1,000 ML 125 ML IVCONT (09:06)
[2022-05-05 09:07] LABS: Glucose, Whole Blood 128 mg/dL (60-115)
--- NOTE | 2022-05-05 09:54 | MHC.CM.PN ---
Met with pt who is presently in ICU w/ new dx DM ([facility]) Pt states he resides alone, works and has a vehicle. During conversation, pt appears somewhat delayed processing information. EMR notes electrolyte abnoramlities: Pt states he does not have a PCP - list of available practitioners given: pt has a working cell and his insurance card. Instructed pt to contact t to choose an MD. If pt requires medications in the interim, he can go to [facility] pharmacy. Pt states his father will transport home. Declined HCP completion. No Covid vax hx. CM to follow for d/c planning.
[2022-05-05] MEDS: Insulin Glargine,Hum.rec.anlog 100 UNIT/ML 10 ML VIAL 40 UNIT SUBCUT (10:00)
[2022-05-05 10:25] LABS: Glucose, Whole Blood 128 mg/dL (60-115)
[2022-05-05 11:25] LABS: Glucose, Whole Blood 172 mg/dL (60-115)
[2022-05-05] MEDS: Insulin Lispro 100 UNIT/ML 3 ML VIAL SUBCUT ×3 (11:41→20:03)
[2022-05-05 12:42] LABS: Glucose, Whole Blood 305 mg/dL (60-115)
[2022-05-05 13:02] LABS: Anion Gap 19 (12-20); Blood Urea Nitrogen 20 mg/dL (9-16); Calcium 8.5 mg/dL (8.4-10.2); Carbon Dioxide 20 mmol/L (22-29); Chloride 110 mmol/L (96-108); Creatinine Clr Calc Pharmacy 70.5; Estimated Glomerular Filt Rate > 60; Glucose Random 266 mg/dL (60-115); Hemoglobin A1c % > 14.0 %; Sodium 145 mmol/L (135-145)
[2022-05-05] MEDS: Insulin Glargine,Hum.rec.anlog 100 UNIT/ML 10 ML VIAL 20 UNIT SUBCUT ×2 (13:30→17:02)
--- NOTE | 2022-05-05 14:17 | P.PNCC_ITS ---
Subjective Subjective Date of Service: 05/05/22 Interval History: 42-year-old gentleman with no prior medical history admitted on 05/04/2022 with acute metabolic encephalopathy secondary to diabetic ketoacidosis with pseudo hyponatremia secondary to greatly elevated glucose. Patient was started on insulin drip with significant improvement. He was transition to Lantus earlier today, however on a follow-up BMP check his bicarbonate and dropped significantly and additional Lantus was given. Critical Care Time (minutes): 0 Physical Exam Vital Signs: Vital Signs: Last Vital Signs Temp 98.1 F 05/05/22 11:00 Pulse 101 H 05/05/22 13:00 Resp 14 05/05/22 13:00 BP 153/82 H 05/05/22 13:00 Pulse Ox 95 05/05/22 13:00 O2 Del Method 05/05/22 13:00 BMI result Body Mass Index 29.9 Const: General: no acute distress and lethargic ( [place]) Orientation/consciousness: lethargic ( [place]) Eyes: Sclerae: sclerae normal EOM: EOMs intact bilaterally Neck: Neck: Yes no lymphadenopathy, Yes trachea midline and Yes supple Resp: Effort & Inspection: normal respiratory effort and no respiratory d istress Auscultation: clear to auscultation bilaterally Cardio: Rate: regular rate Rhythm: regular rhythm Heart sounds: no gallops, no murmurs and no rubs GI: Palpation (GI): Soft to palpation and Other GI palpation findings present ( N[place]) Auscultation: normal bowel sounds Extrem: General: Yes no pedal edema, No clubbing and No cyanosis Objective Data Labs CBC & Chem 7: 05/05/22 05:14 05/05/22 12:11 Labs: Laboratory Results - last 24 hr 05/04/22 05/04/22 05/04/22 19:09 19:12 19:15 WBC RBC Hgb Hct MCV MCH MCHC RDW Plt Count MPV Immature Gran % (Auto) Neut % (Auto) Lymph % (Auto) [place] % (Auto) Eos % (Auto) Baso % (Auto) Lymph # (Auto) [place] # (Auto) Eos # (Auto) Baso # (Auto) Abs Immat Gran (auto) Absolute Neuts (auto) Absolute Nucleated RBC Nucleated RBC % (auto) PT INR VBG pH VBG pCO2 VBG pO2 VBG HCO3 VBG O2 Saturation VBG Base Excess Sodium Potassium Chloride Carbon Dioxide Anion Gap BUN Creatinine Estim Creat Clear Calc Estimated GFR POC Glucose > 600 H* > 600 H* > 600 H* Random Glucose Estimat Average Glucose Hemoglobin A1c % Lactic Acid Lactic Acid F/U @ 2Hr Lactic Acid F/U @ 4Hr Calcium Phosphorus Magnesium Total Bilirubin AST ALT Alkaline Phosphatase Troponin I High Sens Total Protein Albumin Urine Color Urine Appearance Urine pH Ur Specific [place] Urine Protein Urine Glucose (UA) Urine Ketones Urine Blood Urine Nitrite Ur Leukocyte Esterase Urine RBC Urine WBC Ur Squamous Epith Cells Urine Bacteria Hyaline Casts Urine Opiates Screen Urine Fentanyl Screen Ur Barbiturates Screen Ur Phencyclidine Scrn Ur Amphetamines Screen U Benzodiazepines Scrn Urine Cocaine Screen U Marijuana (THC) Screen Ethyl Alcohol Acetone, Qual Influenza Type A (PCR) Influenza Type B (PCR) RSV RNA Qual (PCR) SARS-CoV-2 RNA (RT-PCR) 05/04/22 05/04/22 05/04/22 20:15 20:15 20:16 WBC RBC Hgb Hct MCV MCH MCHC RDW Plt Count MPV Immature Gran % (Auto) Neut % (Auto) Lymph % (Auto) [place] % (Auto) Eos % (Auto) Baso % (Auto) Lymph # (Auto) [place] # (Auto) Eos # (Auto) Baso # (Auto) Abs Immat Gran (auto) Absolute Neuts (auto) Absolute Nucleated RBC Nucleated RBC % (auto) PT 11.7 INR 1.0 VBG pH VBG pCO2 VBG pO2 VBG HCO3 VBG O2 Saturation VBG Base Excess Sodium Potassium Chloride Carbon Dioxide Anion Gap BUN Creatinine Estim Creat Clear Calc Estimated GFR POC Glucose Random Glucose Estimat Average Glucose Hemoglobin A1c % Lactic Acid Lactic Acid F/U @ 2Hr Lactic Acid F/U @ 4Hr Calcium Phosphorus Magnesium Total Bilirubin AST ALT Alkaline Phosphatase Troponin I High Sens 8.7 Total Protein Albumin Urine Color Urine Appearance Urine pH Ur Specific [place] Urine Protein Urine Glucose (UA) Urine Ketones Urine Blood Urine Nitrite Ur Leukocyte Esterase Urine RBC Urine WBC Ur Squamous Epith Cells Urine Bacteria Hyaline Casts Urine Opiates Screen Urine Fentanyl Screen Ur Barbiturates Screen Ur Phencyclidine Scrn Ur Amphetamines Screen U Benzodiazepines Scrn Urine Cocaine Screen U Marijuana (THC) Screen Ethyl Alcohol Acetone, Qual Influenza Type A (PCR) NEGATIVE Influenza Type B (PCR) NEGATIVE RSV RNA Qual (PCR) NEGATIVE SARS-CoV-2 RNA (RT-PCR) NEGATIVE 05/04/22 05/04/22 05/04/22 20:16 20:17 20:17 WBC 8.7 RBC 5.48 Hgb 15.1 Hct 55.1 H MCV 100.5 H MCH 27.6 MCHC 27.4 L RDW 13.3 Plt Count 235 MPV 11.5 Immature Gran % (Auto) 0.6 H Neut % (Auto) 83.6 H Lymph % (Auto) 9.0 L [place] % (Auto) 6.4 Eos % (Auto) 0.1 Baso % (Auto) 0.3 Lymph # (Auto) 0.8 L [place] # (Auto) 0.6 Eos # (Auto) 0.0 Baso # (Auto) 0.0 Abs Immat Gran (auto) 0.05 H Absolute Neuts (auto) 7.3 Absolute Nucleated RBC 0.000 Nucleated RBC % (auto) 0.0 PT INR VBG pH VBG pCO2 VBG pO2 VBG HCO3 VBG O2 Saturation VBG Base Excess Sodium 127 L Potassium 5.9 H Chloride 82 L Carbon Dioxide 19 L Anion Gap 32 H BUN 31 H Creatinine 2.81 H Estim Creat Clear Calc 31.4 Estimated GFR 25 POC Glucose Random Glucose 1695 H* Estimat Average Glucose Hemoglobin A1c % Lactic Acid Lactic Acid F/U @ 2Hr Lactic Acid F/U @ 4Hr Calcium 9.9 Phosphorus 4.6 H Magnesium 3.1 H Total Bilirubin 0.8 AST 71 H ALT 126 H Alkaline Phosphatase 194 H Troponin I High Sens Total Protein 7.3 Albumin 4.1 Urine Color Urine Appearance Urine pH Ur Specific [place] Urine Protein Urine Glucose (UA) Urine Ketones Urine Blood Urine Nitrite Ur Leukocyte Esterase Urine RBC Urine WBC Ur Squamous Epith Cells Urine Bacteria Hyaline Casts Urine Opiates Screen Urine Fentanyl Screen Ur Barbiturates Screen Ur Phencyclidine Scrn Ur Amphetamines Screen U Benzodiazepines Scrn Urine Cocaine Screen U Marijuana (THC) Screen Ethyl Alcohol < 10 Acetone, Qual Small H Influenza Type A (PCR) Influenza Type B (PCR) RSV RNA Qual (PCR) SARS-CoV-2 RNA (RT-PCR) 05/04/22 05/04/22 05/04/22 20:17 20:27 20:36 WBC RBC Hgb Hct MCV MCH MCHC RDW Plt Count MPV Immature Gran % (Auto) Neut % (Auto) Lymph % (Auto) [place] % (Auto) Eos % (Auto) Baso % (Auto) Lymph # (Auto) [place] # (Auto) Eos # (Auto) Baso # (Auto) Abs Immat Gran (auto) Absolute Neuts (auto) Absolute Nucleated RBC Nucleated RBC % (auto) PT INR VBG pH 7.27 L VBG pCO2 51 VBG pO2 45 VBG HCO3 24 VBG O2 Saturation 65.0 VBG Base Excess -3.2 Sodium Potassium Chloride Carbon Dioxide Anion Gap BUN Creatinine Estim Creat Clear Calc Estimated GFR POC Glucose Random Glucose Estimat Average Glucose Hemoglobin A1c % Lactic Acid 4.2 H* Lactic Acid F/U @ 2Hr Lactic Acid F/U @ 4Hr Calcium Phosphorus Magnesium Total Bilirubin AST ALT Alkaline Phosphatase Troponin I High Sens Total Protein Albumin Urine Color Yellow Urine Appearance Clear Urine pH 5.0 Ur Specific [place] >= 1.030 H Urine Protein Negative Urine Glucose (UA) >=1000 H Urine Ketones 15 Urine Blood Negative Urine Nitrite Negative Ur Leukocyte Esterase Negative Urine RBC 0-2 Urine WBC 0-5 Ur Squamous Epith Cells 0-2 Urine Bacteria None Seen Hyaline Casts 0-2 Urine Opiates Screen Urine Fentanyl Screen Ur Barbiturates Screen Ur Phencyclidine Scrn Ur Amphetamines Screen U Benzodiazepines Scrn Urine Cocaine Screen U Marijuana (THC) Screen Ethyl Alcohol Acetone, Qual Influenza Type A (PCR) Influenza Type B (PCR) RSV RNA Qual (PCR) SARS-CoV-2 RNA (RT-PCR) 05/04/22 05/04/22 05/04/22 20:36 21:56 21:57 WBC RBC Hgb Hct MCV MCH MCHC RDW Plt Count MPV Immature Gran % (Auto) Neut % (Auto) Lymph % (Auto) [place] % (Auto) Eos % (Auto) Baso % (Auto) Lymph # (Auto) [place] # (Auto) Eos # (Auto) Baso # (Auto) Abs Immat Gran (auto) Absolute Neuts (auto) Absolute Nucleated RBC Nucleated RBC % (auto) PT INR VBG pH VBG pCO2 VBG pO2 VBG HCO3 VBG O2 Saturation VBG Base Excess Sodium Potassium Chloride Carbon Dioxide Anion Gap BUN Creatinine Estim Creat Clear Calc Estimated GFR POC Glucose > 600 H* > 600 H* Random Glucose Estimat Average Glucose Hemoglobin A1c % Lactic Acid Lactic Acid F/U @ 2Hr Lactic Acid F/U @ 4Hr Calcium Phosphorus Magnesium Total Bilirubin AST ALT Alkaline Phosphatase Troponin I High Sens Total Protein Albumin Urine Color Urine Appearance Urine pH Ur Specific [place] Urine Protein Urine Glucose (UA) Urine Ketones Urine Blood Urine Nitrite Ur Leukocyte Esterase Urine RBC Urine WBC Ur Squamous Epith Cells Urine Bacteria Hyaline Casts Urine Opiates Screen Not Detected Urine Fentanyl Screen Not Detected Ur Barbiturates Screen Not Detected Ur Phencyclidine Scrn Not Detected Ur Amphetamines Screen Not Detected U Benzodiazepines Scrn Not Detected Urine Cocaine Screen Not Detected U Marijuana (THC) Screen Not Detected Ethyl Alcohol Acetone, Qual Influenza Type A (PCR) Influenza Type B (PCR) RSV RNA Qual (PCR) SARS-CoV-2 RNA (RT-PCR) 05/04/22 05/04/22 05/04/22 22:30 22:30 23:18 WBC RBC Hgb Hct MCV MCH MCHC RDW Plt Count MPV Immature Gran % (Auto) Neut % (Auto) Lymph % (Auto) [place] % (Auto) Eos % (Auto) Baso % (Auto) Lymph # (Auto) [place] # (Auto) Eos # (Auto) Baso # (Auto) Abs Immat Gran (auto) Absolute Neuts (auto) Absolute Nucleated RBC Nucleated RBC % (auto) PT INR VBG pH VBG pCO2 VBG pO2 VBG HCO3 VBG O2 Saturation VBG Base Excess Sodium Potassium Chloride Carbon Dioxide Anion Gap BUN Creatinine Estim Creat Clear Calc Estimated GFR POC Glucose > 600 H* Random Glucose 891 H* Estimat Average Glucose Hemoglobin A1c % Lactic Acid Lactic Acid F/U @ 2Hr 3.7 H* Lactic Acid F/U @ 4Hr Calcium Phosphorus Magnesium Total Bilirubin AST ALT Alkaline Phosphatase Troponin I High Sens Total Protein Albumin Urine Color Urine Appearance Urine pH Ur Specific [place] Urine Protein Urine Glucose (UA) Urine Ketones Urine Blood Urine Nitrite Ur Leukocyte Esterase Urine RBC Urine WBC Ur Squamous Epith Cells Urine Bacteria Hyaline Casts Urine Opiates Screen Urine Fentanyl Screen Ur Barbiturates Screen Ur Phencyclidine Scrn Ur Amphetamines Screen U Benzodiazepines Scrn Urine Cocaine Screen U Marijuana (THC) Screen Ethyl Alcohol Acetone, Qual Influenza Type A (PCR) Influenza Type B (PCR) RSV RNA Qual (PCR) SARS-CoV-2 RNA (RT-PCR) 05/04/22 05/05/22 05/05/22 23:22 00:16 00:45 WBC RBC Hgb Hct MCV MCH MCHC RDW Plt Count MPV Immature Gran % (Auto) Neut % (Auto) Lymph % (Auto) [place] % (Auto) Eos % (Auto) Baso % (Auto) Lymph # (Auto) [place] # (Auto) Eos # (Auto) Baso # (Auto) Abs Immat Gran (auto) Absolute Neuts (auto) Absolute Nucleated RBC Nucleated RBC % (auto) PT INR VBG pH VBG pCO2 VBG pO2 VBG HCO3 VBG O2 Saturation VBG Base Excess Sodium Potassium Chloride Carbon Dioxide Anion Gap BUN Creatinine Estim Creat Clear Calc Estimated GFR POC Glucose > 600 H* > 600 H* Random Glucose 751 H* Estimat Average Glucose Hemoglobin A1c % Lactic Acid Lactic Acid F/U @ 2Hr Lactic Acid F/U @ 4Hr Calcium Phosphorus Magnesium Total Bilirubin AST ALT Alkaline Phosphatase Troponin I High Sens Total Protein Albumin Urine Color Urine Appearance Urine pH Ur Specific [place] Urine Protein Urine Glucose (UA) Urine Ketones Urine Blood Urine Nitrite Ur Leukocyte Esterase Urine RBC Urine WBC Ur Squamous Epith Cells Urine Bacteria Hyaline Casts Urine Opiates Screen Urine Fentanyl Screen Ur Barbiturates Screen Ur Phencyclidine Scrn Ur Amphetamines Screen U Benzodiazepines Scrn Urine Cocaine Screen U Marijuana (THC) Screen Ethyl Alcohol Acetone, Qual Influenza Type A (PCR) Influenza Type B (PCR) RSV RNA Qual (PCR) SARS-CoV-2 RNA (RT-PCR) 05/05/22 05/05/22 05/05/22 00:54 00:54 01:59 WBC RBC Hgb Hct MCV MCH MCHC RDW Plt Count MPV Immature Gran % (Auto) Neut % (Auto) Lymph % (Auto) [place] % (Auto) Eos % (Auto) Baso % (Auto) Lymph # (Auto) [place] # (Auto) Eos # (Auto) Baso # (Auto) Abs Immat Gran (auto) Absolute Neuts (auto) Absolute Nucleated RBC Nucleated RBC % (auto) PT INR VBG pH VBG pCO2 VBG pO2 VBG HCO3 VBG O2 Saturation VBG Base Excess Sodium 149 H Potassium 4.1 D Chloride 109 H D Carbon Dioxide 23 Anion Gap 21 H BUN 24 H Creatinine 1.87 H Estim Creat Clear Calc 47.2 Estimated GFR 40 POC Glucose 423 H* Random Glucose 666 H* Estimat Average Glucose Hemoglobin A1c % Lactic Acid Lactic Acid F/U @ 2Hr Lactic Acid F/U @ 4Hr 2.0 Calcium 9.9 Phosphorus Magnesium Total Bilirubin AST ALT Alkaline Phosphatase Troponin I High Sens Total Protein Albumin Urine Color Urine Appearance Urine pH Ur Specific [place] Urine Protein Urine Glucose (UA) Urine Ketones Urine Blood Urine Nitrite Ur Leukocyte Esterase Urine RBC Urine WBC Ur Squamous Epith Cells Urine Bacteria Hyaline Casts Urine Opiates Screen Urine Fentanyl Screen Ur Barbiturates Screen Ur Phencyclidine Scrn Ur Amphetamines Screen U Benzodiazepines Scrn Urine Cocaine Screen U Marijuana (THC) Screen Ethyl Alcohol Acetone, Qual Influenza Type A (PCR) Influenza Type B (PCR) RSV RNA Qual (PCR) SARS-CoV-2 RNA (RT-PCR) 05/05/22 05/05/22 05/05/22 02:57 04:00 04:56 WBC RBC Hgb Hct MCV MCH MCHC RDW Plt Count MPV Immature Gran % (Auto) Neut % (Auto) Lymph % (Auto) [place] % (Auto) Eos % (Auto) Baso % (Auto) Lymph # (Auto) [place] # (Auto) Eos # (Auto) Baso # (Auto) Abs Immat Gran (auto) Absolute Neuts (auto) Absolute Nucleated RBC Nucleated RBC % (auto) PT INR VBG pH VBG pCO2 VBG pO2 VBG HCO3 VBG O2 Saturation VBG Base Excess Sodium Potassium Chloride Carbon Dioxide Anion Gap BUN Creatinine Estim Creat Clear Calc Estimated GFR POC Glucose 375 H* 335 H 276 H Random Glucose Estimat Average Glucose Hemoglobin A1c % Lactic Acid Lactic Acid F/U @ 2Hr Lactic Acid F/U @ 4Hr Calcium Phosphorus Magnesium Total Bilirubin AST ALT Alkaline Phosphatase Troponin I High Sens Total Protein Albumin Urine Color Urine Appearance Urine pH Ur Specific [place] Urine Protein Urine Glucose (UA) Urine Ketones Urine Blood Urine Nitrite Ur Leukocyte Esterase Urine RBC Urine WBC Ur Squamous Epith Cells Urine Bacteria Hyaline Casts Urine Opiates Screen Urine Fentanyl Screen Ur Barbiturates Screen Ur Phencyclidine Scrn Ur Amphetamines Screen U Benzodiazepines Scrn Urine Cocaine Screen U Marijuana (THC) Screen Ethyl Alcohol Acetone, Qual Influenza Type A (PCR) Influenza Type B (PCR) RSV RNA Qual (PCR) SARS-CoV-2 RNA (RT-PCR) 05/05/22 05/05/22 05/05/22 05:11 05:14 05:14 WBC 11.6 H RBC 5.31 Hgb 14.8 Hct 44.0 D MCV 82.9 D MCH 27.9 MCHC 33.6 RDW 13.1 Plt Count 229 MPV 10.5 Immature Gran % (Auto) 0.3 Neut % (Auto) 67.4 Lymph % (Auto) 24.9 [place] % (Auto) 6.4 Eos % (Auto) 0.6 Baso % (Auto) 0.4 Lymph # (Auto) 2.9 [place] # (Auto) 0.7 Eos # (Auto) 0.1 Baso # (Auto) 0.1 Abs Immat Gran (auto) 0.04 H Absolute Neuts (auto) 7.8 Absolute Nucleated RBC 0.000 Nucleated RBC % (auto) 0.0 PT INR VBG pH 7.55 H VBG pCO2 29 VBG pO2 61 VBG HCO3 25 VBG O2 Saturation 92.0 VBG Base Excess 4.3 Sodium 152 H Potassium 3.4 Chloride 113 H Carbon Dioxide 28 Anion Gap 14 BUN 22 H Creatinine 1.43 H Estim Creat Clear Calc 61.8 Estimated GFR 54 POC Glucose Random Glucose 288 H Estimat Average Glucose Hemoglobin A1c % Lactic Acid Lactic Acid F/U @ 2Hr Lactic Acid F/U @ 4Hr Calcium 9.7 Phosphorus 1.3 L Magnesium Total Bilirubin 0.7 AST 33 ALT 99 H Alkaline Phosphatase 140 H Troponin I High Sens Total Protein 6.6 Albumin 3.8 Urine Color Urine Appearance Urine pH Ur Specific [place] Urine Protein Urine Glucose (UA) Urine Ketones Urine Blood Urine Nitrite Ur Leukocyte Esterase Urine RBC Urine WBC Ur Squamous Epith Cells Urine Bacteria Hyaline Casts Urine Opiates Screen Urine Fentanyl Screen Ur Barbiturates Screen Ur Phencyclidine Scrn Ur Amphetamines Screen U Benzodiazepines Scrn Urine Cocaine Screen U Marijuana (THC) Screen Ethyl Alcohol Acetone, Qual Influenza Type A (PCR) Influenza Type B (PCR) RSV RNA Qual (PCR) SARS-CoV-2 RNA (RT-PCR) 05/05/22 05/05/22 05/05/22 05:58 07:04 08:22 WBC RBC Hgb Hct MCV MCH MCHC RDW Plt Count MPV Immature Gran % (Auto) Neut % (Auto) Lymph % (Auto) [place] % (Auto) Eos % (Auto) Baso % (Auto) Lymph # (Auto) [place] # (Auto) Eos # (Auto) Baso # (Auto) Abs Immat Gran (auto) Absolute Neuts (auto) Absolute Nucleated RBC Nucleated RBC % (auto) PT INR VBG pH VBG pCO2 VBG pO2 VBG HCO3 VBG O2 Saturation VBG Base Excess Sodium Potassium Chloride Carbon Dioxide Anion Gap BUN Creatinine Estim Creat Clear Calc Estimated GFR POC Glucose 222 H 148 H 163 H Random Glucose Estimat Average Glucose Hemoglobin A1c % Lactic Acid Lactic Acid F/U @ 2Hr Lactic Acid F/U @ 4Hr Calcium Phosphorus Magnesium Total Bilirubin AST ALT Alkaline Phosphatase Troponin I High Sens Total Protein Albumin Urine Color Urine Appearance Urine pH Ur Specific [place] Urine Protein Urine Glucose (UA) Urine Ketones Urine Blood Urine Nitrite Ur Leukocyte Esterase Urine RBC Urine WBC Ur Squamous Epith Cells Urine Bacteria Hyaline Casts Urine Opiates Screen Urine Fentanyl Screen Ur Barbiturates Screen Ur Phencyclidine Scrn Ur Amphetamines Screen U Benzodiazepines Scrn Urine Cocaine Screen U Marijuana (THC) Screen Ethyl Alcohol Acetone, Qual Influenza Type A (PCR) Influenza Type B (PCR) RSV RNA Qual (PCR) SARS-CoV-2 RNA (RT-PCR) 05/05/22 05/05/22 05/05/22 09:04 10:22 11:21 WBC RBC Hgb Hct MCV MCH MCHC RDW Plt Count MPV Immature Gran % (Auto) Neut % (Auto) Lymph % (Auto) [place] % (Auto) Eos % (Auto) Baso % (Auto) Lymph # (Auto) [place] # (Auto) Eos # (Auto) Baso # (Auto) Abs Immat Gran (auto) Absolute Neuts (auto) Absolute Nucleated RBC Nucleated RBC % (auto) PT INR VBG pH VBG pCO2 VBG pO2 VBG HCO3 VBG O2 Saturation VBG Base Excess Sodium Potassium Chloride Carbon Dioxide Anion Gap BUN Creatinine Estim Creat Clear Calc Estimated GFR POC Glucose 128 H 128 H 172 H Random Glucose Estimat Average Glucose Hemoglobin A1c % Lactic Acid Lactic Acid F/U @ 2Hr Lactic Acid F/U @ 4Hr Calcium Phosphorus Magnesium Total Bilirubin AST ALT Alkaline Phosphatase Troponin I High Sens Total Protein Albumin Urine Color Urine Appearance Urine pH Ur Specific [place] Urine Protein Urine Glucose (UA) Urine Ketones Urine Blood Urine Nitrite Ur Leukocyte Esterase Urine RBC Urine WBC Ur Squamous Epith Cells Urine Bacteria Hyaline Casts Urine Opiates Screen Urine Fentanyl Screen Ur Barbiturates Screen Ur Phencyclidine Scrn Ur Amphetamines Screen U Benzodiazepines Scrn Urine Cocaine Screen U Marijuana (THC) Screen Ethyl Alcohol Acetone, Qual Influenza Type A (PCR) Influenza Type B (PCR) RSV RNA Qual (PCR) SARS-CoV-2 RNA (RT-PCR) 05/05/22 05/05/2222 12:11 12:11 12:38 WBC RBC Hgb Hct MCV MCH MCHC RDW Plt Count MPV Immature Gran % (Auto) Neut % (Auto) Lymph % (Auto) [place] % (Auto) Eos % (Auto) Baso % (Auto) Lymph # (Auto) [place] # (Auto) Eos # (Auto) Baso # (Auto) Abs Immat Gran (auto) Absolute Neuts (auto) Absolute Nucleated RBC Nucleated RBC % (auto) PT INR VBG pH VBG pCO2 VBG pO2 VBG HCO3 VBG O2 Saturation VBG Base Excess Sodium 145 Potassium 4.0 Chloride 110 H Carbon Dioxide 20 L Anion Gap 19 BUN 20 H Creatinine 1.25 Estim Creat Clear Calc 70.5 Estimated GFR > 60 POC Glucose 305 H Random Glucose 266 H Estimat Average Glucose TNP Hemoglobin A1c % > 14.0 Lactic Acid Lactic Acid F/U @ 2Hr Lactic Acid F/U @ 4Hr Calcium 8.5 D Phosphorus Magnesium Total Bilirubin AST ALT Alkaline Phosphatase Troponin I High Sens Total Protein Albumin Urine Color Urine Appearance Urine pH Ur Specific [place] Urine Protein Urine Glucose (UA) Urine Ketones Urine Blood Urine Nitrite Ur Leukocyte Esterase Urine RBC Urine WBC Ur Squamous Epith Cells Urine Bacteria Hyaline Casts Urine Opiates Screen Urine Fentanyl Screen Ur Barbiturates Screen Ur Phencyclidine Scrn Ur Amphetamines Screen U Benzodiazepines Scrn Urine Cocaine Screen U Marijuana (THC) Screen Ethyl Alcohol Acetone, Qual Influenza Type A (PCR) Influenza Type B (PCR) RSV RNA Qual (PCR) SARS-CoV-2 RNA (RT-PCR) Progress Note: A&P Assessment and plan (1) Pseudohyponatremia: Status: Acute (2) Hyperosmolar hyperglycemic state (HHS): Status: Acute (3) Acute metabolic encephalopathy: Status: Acute (4) Acute kidney injury: Status: Acute Plan Assessment: 42-year-old gentleman with new diagnosis diabetes mellitus with diabetic ketoacidosis and metabolic encephalopathy improving on insulin drip. Plan: Neuro: No acute issues. Cardiac: No acute issues. Pulmonary: No acute issues. Renal: acute kidney injury secondary to volume depletion secondary to diabetic ketoacidosis, improving. Non oliguric. Continue to monitor renal indices and urine output. CO2 hypernatremia secondary to significantly elevated glucose, resolved. Endo: New diagnosis of diabetic toes with diabetic ketoacidosis. Continue to titrate off insulin drip to subcutaneous insulin. Hemoglobin A1c is pending. GI: No acute issues. ID: No acute issues Heme/Onc: No acute issues. Psych: No acute issues. Miscellaneous: No acute issues. Prophylaxis: Heparin Diet: diabetic Quality Stroke Does the patient have a stroke diagnosis?: No VTE Prior VTE?: No VTE Risk Level:: Medical - moderate - high VTE Device Contraindication: N/A - Device Ordered VTE Drug Contraindication: N/A - Med Ordered
[2022-05-05 16:50] LABS: Glucose, Whole Blood 381 mg/dL (60-115)
--- NOTE | 2022-05-05 19:00 | PC.NURSE ---
PATIENT SLIGHTLY CONFUSED IN AM DURING ASSESSMENT, DAY PROCEEDED PATIENT RETURNED TO BASELINE. INSULIN GTT TITRATED BASED ON PROTOCOL, SEE EMAR. MD EVENTUALLY D/C INSULIN GTT AND SWITCHED PATIENT OVER TO SUBQ INSULIN. PATIENT PASSED NURSING SWALLOW EVALUATION. PATIENT PLACED ON DIABETIC DIET PER MD. PATIENT UPDATED ON HEALTH STATUS, HELPED TO REPOSITION Q2HR.
[2022-05-05 19:44] LABS: Anion Gap 16 (12-20); Blood Urea Nitrogen 23 mg/dL (9-16); Calcium 8.2 mg/dL (8.4-10.2); Carbon Dioxide 26 mmol/L (22-29); Chloride 102 mmol/L (96-108); Creatinine Clr Calc Pharmacy 60.8; Estimated Glomerular Filt Rate 53; Glucose Random 512 mg/dL (60-115); Potassium 3.6 mmol/L (3.3-5.1); Sodium 140 mmol/L (135-145)
[2022-05-05] MEDS: Potassium Chloride Packet 20 MEQ PACKET PO (20:32)
[2022-05-05 21:51] LABS: Glucose, Whole Blood 358 mg/dL (60-115)
[2022-05-05] MEDS: Insulin Lispro 100 UNIT/ML 3 ML VIAL 10 UNIT SUBCUT (22:09)
[2022-05-06] VITALS (22 sets, daily range): BP systolic 99–133; BP diastolic 41–86; PULSE 84–115; RESP 12–21; TEMP 36.8–37.8; O2SAT 92–99; BMI 30.7
[2022-05-06 01:55] LABS: Glucose, Whole Blood 200 mg/dL (60-115)
[2022-05-06 05:12] LABS: MANUAL DIFF FLAG NO
[2022-05-06 05:19] LABS: Basophils Percent Auto 0.3 % (0-2); Eosinophils Absolute Auto 0.2 X10*3/uL (0.0-0.4); Eosinophils Percent Auto 2.5 % (0-4); Hematocrit 40.1 % (42.0-52.0); Hemoglobin 12.8 g/dl (14.0-18.0); Imm Gran Abs Auto 0.02 X10*3/uL (0.00-0.03); Imm Gran Pct Auto 0.3 % (0.0-0.4); Lymphocytes Absolute Auto 1.9 X10*3/uL (1.2-4.9); Lymphocytes Percent Auto 28.1 % (20-40); Mean Corpuscular HGB Conc 31.9 g/dl (31.0-36.0); Mean Corpuscular Hemoglobin 27.4 pg (27.0-33.0); Mean Corpuscular Volume 85.7 fL (80.0-98.0); Mean Platelet Volume 10.4 fL (9.4-12.4); Monocytes Absolute Auto 0.6 X10*3/uL (0.1-1.2); Monocytes Percent Auto 8.5 % (2-11); Neutrophils Absolute Auto 4.1 x10*3/uL (2.0-8.3); Neutrophils Percent Auto 60.3 % (45-73); Platelet Count 137 X10*3/uL (160-400); Red Blood Count 4.68 X10*6/uL (4.60-5.80); Red Cell Distribution Width 13.1 % (11.0-16.0); White Blood Count 6.8 X10*3/uL (4.8-10.8)
[2022-05-06 05:36] LABS: Albumin Level 3.1 g/dL (3.5-5.0); Anion Gap 12 (12-20); Blood Urea Nitrogen 17 mg/dL (9-16); Calcium 8.5 mg/dL (8.4-10.2); Carbon Dioxide 30 mmol/L (22-29); Chloride 105 mmol/L (96-108); Creatinine Clr Calc Pharmacy 84.8; Estimated Glomerular Filt Rate > 60; Glucose Random 184 mg/dL (60-115); Magnesium 2.6 mg/dL (1.6-2.6); Phosphorus 2.7 mg/dL (2.7-4.5); Potassium 3.5 mmol/L (3.3-5.1); Sodium 143 mmol/L (135-145)
[2022-05-06 07:49] LABS: Glucose, Whole Blood 240 mg/dL (60-115)
[2022-05-06] MEDS: Heparin Sodium,Porcine 5,000 UNIT/ML VIAL 5000 UNIT SUBCUT ×2 (07:59→17:01)
[2022-05-06] MEDS: Insulin Lispro 100 UNIT/ML 3 ML VIAL SUBCUT ×4 (08:00→21:21)
[2022-05-06] MEDS: Potassium Chloride Packet 20 MEQ PACKET 40 MEQ PO (08:01)
[2022-05-06] MEDS: Insulin Glargine,Hum.rec.anlog 100 UNIT/ML 10 ML VIAL 80 UNIT SUBCUT ×2 (08:01→21:22)
[2022-05-06] MEDS: 0.9 % Sodium Chloride Flush 3 ML SYRINGE IVFLUSH ×3 (08:02→17:01)
[2022-05-06 11:23] LABS: Glucose, Whole Blood 410 mg/dL (60-115)
--- NOTE | 2022-05-06 11:23 | PM.CCPN ---
Subjective Subjective Date of Service: 05/06/22 Interval History: 42-year-old gentleman with no prior medical history admitted on 05/04/2022 with acute metabolic encephalopathy secondary to diabetic ketoacidosis with pseudo hyponatremia secondary to greatly elevated glucose. Patient was started on insulin drip with significant improvement. He was transition to Lantus, but required significant increases in his Lantus dose. His hemoglobin A1c is over 14. Critical Care Time (minutes): 0 Physical Exam Vital Signs: Vital Signs: Last Vital Signs Temp 100.1 F 05/06/22 11:00 Pulse 101 H 05/06/22 11:00 Resp 19 05/06/22 11:00 BP 123/75 05/06/22 11:00 Pulse Ox 92 05/06/22 11:00 O2 Del Method 05/06/22 11:00 BMI result Body Mass Index 30.7 Const: General: no acute distress, alert and awake Eyes: Sclerae: sclerae normal EOM: EOMs intact bilaterally Neck: Neck: Yes no lymphadenopathy, Yes trachea midline and Yes supple Resp: Effort & Inspection: normal respiratory effort and no respiratory distress Auscultation: clear to auscultation bilaterally Cardio: Rate: tachycardic Rhythm: regular rhythm Heart sounds: no gallops, no murmurs and no rubs GI: Palpation (GI): Soft to palpation and Other GI palpation findings present ( Nontender) Auscultation: normal bowel sounds Extrem: General: Yes no pedal edema, No clubbing and No cyanosis Objective Data Labs CBC & Chem 7: 05/06/22 05:05 05/06/22 05:05 Labs: Laboratory Results - last 24 hr 05/05/22 05/05/22 05/05/22 11:21 12:11 12:11 WBC RBC Hgb Hct MCV MCH MCHC RDW Plt Count MPV Immature Gran % (Auto) Neut % (Auto) Lymph % (Auto) [place] % (Auto) Eos % (Auto) Baso % (Auto) Lymph # (Auto) [place] # (Auto) Eos # (Auto) Baso # (Auto) Abs Immat Gran (auto) Absolute Neuts (auto) Absolute Nucleated RBC Nucleated RBC % (auto) Sodium 145 Potassium 4.0 Chloride 110 H Carbon Dioxide 20 L Anion Gap 19 BUN 20 H Creatinine 1.25 Estim Creat Clear Calc 70.5 Estimated GFR > 60 POC Glucose 172 H Random Glucose 266 H Estimat Average Glucose TNP Hemoglobin A1c % > 14.0 Calcium 8.5 D Phosphorus Magnesium Albumin 05/05/22 05/05/22 05/05/22 12:38 16:45 18:18 WBC RBC Hgb Hct MCV MCH MCHC RDW Plt Count MPV Immature Gran % (Auto) Neut % (Auto) Lymph % (Auto) [place] % (Auto) Eos % (Auto) Baso % (Auto) Lymph # (Auto) [place] # (Auto) Eos # (Auto) Baso # (Auto) Abs Immat Gran (auto) Absolute Neuts (auto) Absolute Nucleated RBC Nucleated RBC % (auto) Sodium 140 Potassium 3.6 Chloride 102 Carbon Dioxide 26 Anion Gap 16 BUN 23 H Creatinine 1.45 H Estim Creat Clear Calc 60.8 Estimated GFR 53 POC Glucose 305 H 381 H* Random Glucose 512 H* Estimat Average Glucose Hemoglobin A1c % Calcium 8.2 L Phosphorus Magnesium Albumin 05/05/22 05/06/22 05/06/22 21:48 01:51 05:05 WBC 6.8 RBC 4.68 Hgb 12.8 L Hct 40.1 L MCV 85.7 MCH 27.4 MCHC 31.9 RDW 13.1 Plt Count 137 L D MPV 10.4 Immature Gran % (Auto) 0.3 Neut % (Auto) 60.3 Lymph % (Auto) 28.1 [place] % (Auto) 8.5 Eos % (Auto) 2.5 Baso % (Auto) 0.3 Lymph # (Auto) 1.9 [place] # (Auto) 0.6 Eos # (Auto) 0.2 Baso # (Auto) 0.0 Abs Immat Gran (auto) 0.02 Absolute Neuts (auto) 4.1 Absolute Nucleated RBC 0.000 Nucleated RBC % (auto) 0.0 Sodium Potassium Chloride Carbon Dioxide Anion Gap BUN Creatinine Estim Creat Clear Calc Estimated GFR POC Glucose 358 H* 200 H Random Glucose Estimat Average Glucose Hemoglobin A1c % Calcium Phosphorus Magnesium Albumin 05/06/22 05/06/22 05/06/22 05:05 07:46 11:19 WBC RBC Hgb Hct MCV MCH MCHC RDW Plt Count MPV Immature Gran % (Auto) Neut % (Auto) Lymph % (Auto) [place] % (Auto) Eos % (Auto) Baso % (Auto) Lymph # (Auto) [place] # (Auto) Eos # (Auto) Baso # (Auto) Abs Immat Gran (auto) Absolute Neuts (auto) Absolute Nucleated RBC Nucleated RBC % (auto) Sodium 143 Potassium 3.5 Chloride 105 Carbon Dioxide 30 H Anion Gap 12 BUN 17 H Creatinine 1.04 Estim Creat Clear Calc 84.8 Estimated GFR > 60 POC Glucose 240 H 410 H* Random Glucose 184 H Estimat Average Glucose Hemoglobin A1c % Calcium 8.5 Phosphorus 2.7 Magnesium 2.6 Albumin 3.1 L Microbiology Microbiology Results: Microbiology 05/04/22 20:21 Blood - Venous Blood Culture - Preliminary No growth after 24 hours. 05/04/22 20:16 Blood - Venous Blood Culture - Preliminary No growth after 24 hours. Progress Note: A&P Assessment and plan (1) Acute kidney injury: Status: Acute (2) Acute metabolic encephalopathy: Status: Acute (3) Pseudohyponatremia: Status: Acute (4) Hyperosmolar hyperglycemic state (HHS): Status: Acute Plan Assessment: 42-year-old gentleman with new diagnosis diabetes mellitus with diabetic ketoacidosis and metabolic encephalopathy improving on insulin drip. Plan: Neuro: No acute issues. Cardiac: No acute issues. Pulmonary: No acute issues. Renal: acute kidney injury secondary to volume depletion secondary to diabetic ketoacidosis, improving. Non oliguric. Continue to monitor renal indices and urine output. Pseudohyponatremia secondary to significantly elevated glucose, resolved. Endo: New diagnosis of diabes with diabetic ketoacidosis. Titrated off insulin drip to subcutaneous insulin. Hemoglobin A1c is over 14. GI: No acute issues. ID: No acute issues Heme/Onc: No acute issues. Psych: No acute issues. Miscellaneous: No acute issues. Prophylaxis: Heparin Diet: diabetic Quality Stroke Does the patient have a stroke diagnosis?: No VTE Prior VTE?: No VTE Risk Level:: Medical - moderate - high VTE Device Contraindication: N/A - Device Ordered VTE Drug Contraindication: N/A - Med Ordered
[2022-05-06 16:18] LABS: Glucose, Whole Blood 343 mg/dL (60-115)
[2022-05-06 20:49] LABS: Glucose, Whole Blood 460 mg/dL (60-115)
[2022-05-07] VITALS (7 sets, daily range): BP systolic 102–145; BP diastolic 55–79; PULSE 96–108; RESP 16–20; TEMP 36.3–37.7; O2SAT 95–99
[2022-05-07] MEDS: Heparin Sodium,Porcine 5,000 UNIT/ML VIAL 5000 UNIT SUBCUT ×4 (00:08→23:50)
[2022-05-07] MEDS: 0.9 % Sodium Chloride Flush 3 ML SYRINGE IVFLUSH ×4 (00:08→23:50)
[2022-05-07 06:13] LABS: MANUAL DIFF FLAG NO
[2022-05-07 06:20] LABS: Basophils Percent Auto 0.4 % (0-2); Eosinophils Absolute Auto 0.1 X10*3/uL (0.0-0.4); Eosinophils Percent Auto 1.8 % (0-4); Hematocrit 34.9 % (42.0-52.0); Hemoglobin 11.4 g/dl (14.0-18.0); Imm Gran Abs Auto 0.02 X10*3/uL (0.00-0.03); Imm Gran Pct Auto 0.4 % (0.0-0.4); Lymphocytes Absolute Auto 1.9 X10*3/uL (1.2-4.9); Lymphocytes Percent Auto 33.9 % (20-40); Mean Corpuscular HGB Conc 32.7 g/dl (31.0-36.0); Mean Corpuscular Hemoglobin 27.9 pg (27.0-33.0); Mean Corpuscular Volume 85.3 fL (80.0-98.0); Mean Platelet Volume 10.9 fL (9.4-12.4); Monocytes Absolute Auto 0.5 X10*3/uL (0.1-1.2); Monocytes Percent Auto 9.9 % (2-11); Neutrophils Absolute Auto 2.9 x10*3/uL (2.0-8.3); Neutrophils Percent Auto 53.6 % (45-73); Platelet Count 111 X10*3/uL (160-400); Red Blood Count 4.09 X10*6/uL (4.60-5.80); Red Cell Distribution Width 12.3 % (11.0-16.0); White Blood Count 5.5 X10*3/uL (4.8-10.8)
[2022-05-07 06:42] LABS: Albumin Level 2.9 g/dL (3.5-5.0); Anion Gap 10 (12-20); Blood Urea Nitrogen 10 mg/dL (9-16); Calcium 8.5 mg/dL (8.4-10.2); Carbon Dioxide 30 mmol/L (22-29); Chloride 103 mmol/L (96-108); Creatinine Clr Calc Pharmacy 111.5; Estimated Glomerular Filt Rate > 60; Glucose Random 149 mg/dL (60-115); Magnesium 2.5 mg/dL (1.6-2.6); Phosphorus 2.6 mg/dL (2.7-4.5); Potassium 3.5 mmol/L (3.3-5.1); Sodium 139 mmol/L (135-145)
[2022-05-07 07:14] LABS: Glucose, Whole Blood 140 mg/dL (60-115)
[2022-05-07] MEDS: Insulin Glargine,Hum.rec.anlog 100 UNIT/ML 10 ML VIAL 80 UNIT SUBCUT ×2 (07:50→20:10)
[2022-05-07] MEDS: Insulin Lispro 100 UNIT/ML 3 ML VIAL SUBCUT ×4 (07:51→20:11)
--- NOTE | 2022-05-07 08:39 | PC.NURSE ---
report received from overnight RN, medical technologist chemistry per JUL. pt education given about self administration of insulin. Pt verbalized understanding and states he has no further questions. Call barry within reach, encouraged to call for assistance. Safety precautions in place
--- NOTE | 2022-05-07 10:42 | MHC.CLN ---
DIABETIC TEACHING COMPLETED. SEE TEACHING RECORD
[2022-05-07 11:22] LABS: Glucose, Whole Blood 379 mg/dL (60-115)
--- NOTE | 2022-05-07 14:53 | P.PNIM_ITS ---
Subjective Subjective Date of Service: 05/07/22 Interval History: feels better, BG improved no PCP needs insulin teaching Review of Systems Review of Systems: Yes all other systems are reviewed and are negative Physical Exam Vital Signs: Vital Signs: Last Vital Signs Temp 97.5 F 05/07/22 11:14 Pulse 99 05/07/22 11:14 Resp 18 05/07/22 11:14 BP 130/76 05/07/22 11:14 Pulse Ox 95 05/07/22 11:14 O2 Del Method 05/07/22 11:14 BMI result Body Mass Index 30.7 Gen: in no acute distress HEENT: sclera anicteric, moist mucus membranes Neck: supple Lungs: clear to auscultation bilaterally Heart: regular rate and rhythm, no murmurs Abd: soft, non-tender, non-distended Ext: no edema Skin: warm/well-perfused Neuro: alert and oriented x3, no focal findings Psych: appropriate affect Objective Data Active Medications Dextrose (Dextrose 50 % 25 Gm/50 Ml Syringe) 25 gm IVPUSH Q30M PRN PRN Reason: BG < 70 Heparin Sodium (Porcine) (Heparin Sodium,Porcine 5,000 Unit/Ml Vial) 5,000 unit SUBCUT Q8H [facility] Last Admin: 05/07/22 07:51 Dose: 5,000 unit Documented By: RON Insulin Glargine (Insulin Glargine,Hum.Rec.Anlog 100 Unit/Ml 10 Ml Vial) 80 unit SUBCUT BID [facility] Last Admin: 05/07/22 07:50 Dose: 80 unit Documented By: RON Insulin Human Lispro (Insulin Lispro 100 Unit/Ml 3 Ml Vial) 0 unit SUBCUT QIDACHS [facility]; Protocol Last Admin: 05/07/22 11:24 Dose: 15 unit Documented By: RON Pharmacy Consult (Consult Rx Perform Med Rec) 1 each MISCELLANE ONCE PRN PRN Reason: Consult order Sodium Chloride (0.9 % Sodium Chloride Flush 3 Ml Syringe) 3 ml IVFLUSH QSHIFT [facility] Last Admin: 05/07/22 07:51 Dose: 3 ml Documented By: RON Labs CBC & Chem 7: 05/07/22 05:50 05/07/22 05:50 Labs: Laboratory Results - last 24 hr 12/05/06/22 05/07/22 16:14 20:44 05:50 MCV 85.3 MCH 27.9 MCHC 32.7 RDW 12.3 Plt Count 111 L MPV 10.9 Immature Gran % (Auto) 0.4 Neut % (Auto) 53.6 Lymph % (Auto) 33.9 [place] % (Auto) 9.9 Eos % (Auto) 1.8 Baso % (Auto) 0.4 Lymph # (Auto) 1.9 [place] # (Auto) 0.5 Eos # (Auto) 0.1 Baso # (Auto) 0.0 Abs Immat Gran (auto) 0.02 Absolute Neuts (auto) 2.9 Absolute Nucleated RBC 0.000 Nucleated RBC % (auto) 0.0 Anion Gap Estim Creat Clear Calc Estimated GFR POC Glucose 343 H 460 H* Random Glucose Calcium Phosphorus Magnesium Albumin 05/07/22 05/07/22 05/07/22 05:50 07:10 11:14 MCV MCH MCHC RDW Plt Count MPV Immature Gran % (Auto) Neut % (Auto) Lymph % (Auto) [place] % (Auto) Eos % (Auto) Baso % (Auto) Lymph # (Auto) [place] # (Auto) Eos # (Auto) Baso # (Auto) Abs Immat Gran (auto) Absolute Neuts (auto) Absolute Nucleated RBC Nucleated RBC % (auto) Anion Gap 10 L Estim Creat Clear Calc 111.5 Estimated GFR > 60 POC Glucose 140 H 379 H* Random Glucose 149 H Calcium 8.5 Phosphorus 2.6 L Magnesium 2.5 Albumin 2.9 L Microbiology Microbiology Results: Microbiology 05/04/22 20:21 Blood Culture - Preliminary Blood - Venous No growth after 48 hours. 05/04/22 20:16 Blood Culture - Preliminary Blood - Venous No growth after 48 hours. Assessment and Plan (1) Uncontrolled diabetes mellitus with hyperglycemia: Status: Acute (2) Hyperosmolar hyperglycemic state (HHS): Status: Acute Plan hospital d#4 42yo M with no PMHx admitted to ICU with HHS, new diagnosis DM2 with HbA1c >14 # new dx DM2 - basal/bolus insulin, teaching, PCP + Endocrine f/u # NGOZI, prerenal - resolved s/p IV fluid hydration # metabolic encephalopathy - due to HHS, resolved # VTE ppx: HHS In my clinical judgment, the patient requires continued inpatient hospitalization for the following reasons: insulin teaching, running insulin + supplies through insurance Time Spent With Patient Time: Total time managing care of this patient today __25__ minutes. Quality Stroke Does the patient have a stroke diagnosis?: No VTE Prior VTE?: No VTE Risk Level:: Medical - moderate - high VTE Device Contraindication: N/A - Device Ordered VTE Drug Contraindication: N/A - Med Ordered
[2022-05-07 15:58] LABS: Glucose, Whole Blood 213 mg/dL (60-115)
[2022-05-07 19:59] LABS: Glucose, Whole Blood 230 mg/dL (60-115)
[2022-05-08 03:11] VITALS: BP 127/65; PULSE 96; RESP 17; TEMP 36.7; O2SAT 96
[2022-05-08 07:18] VITALS: BP 129/69; PULSE 100; RESP 18; TEMP 36.7; O2SAT 98
[2022-05-08 07:24] LABS: Glucose, Whole Blood 149 mg/dL (60-115)
[2022-05-08] MEDS: Insulin Glargine,Hum.rec.anlog 100 UNIT/ML 10 ML VIAL 80 UNIT SUBCUT ×2 (08:22→20:40)
[2022-05-08] MEDS: Insulin Lispro 100 UNIT/ML 3 ML VIAL SUBCUT ×4 (08:22→20:41)
[2022-05-08] MEDS: Heparin Sodium,Porcine 5,000 UNIT/ML VIAL 5000 UNIT SUBCUT (08:22)
[2022-05-08] MEDS: 0.9 % Sodium Chloride Flush 3 ML SYRINGE IVFLUSH ×3 (08:23→20:40)
[2022-05-08 11:17] VITALS: BP 134/81; PULSE 119; RESP 20; TEMP 36.6; O2SAT 98
[2022-05-08 11:24] LABS: Glucose, Whole Blood 219 mg/dL (60-115)
--- NOTE | 2022-05-08 12:14 | HO.PM.IMPN ---
Subjective Subjective Date of Service: 05/08/22 Interval History: awaiting delivery of insulin pens so he can be instructed in home use trying to arrange primary care no N/V/abd pain Review of Systems Review of Systems: Yes all other systems are reviewed and are negative Physical Exam Vital Signs: Vital Signs: Last Vital Signs Temp 97.8 F 05/08/22 11:17 Pulse 119 H 05/08/22 11:17 Resp 20 05/08/22 11:17 BP 134/81 05/08/22 11:17 Pulse Ox 98 05/08/22 11:17 O2 Del Method 05/08/22 11:17 BMI result Body Mass Index 30.7 Gen: in no acute distress HEENT: sclera anicteric, moist mucus membranes Neck: supple Lungs: clear to auscultation bilaterally Heart: regular rate and rhythm, no murmurs Abd: soft, non-tender, non-distended, obese Ext: no edema Skin: warm/well-perfused Neuro: alert and oriented x3, no focal findings Psych: appropriate affect Objective Data Active Medications Dextrose (Dextrose 50 % 25 Gm/50 Ml Syringe) 25 gm IVPUSH Q30M PRN PRN Reason: BG < 70 Heparin Sodium (Porcine) (Heparin Sodium,Porcine 5,000 Unit/Ml Vial) 5,000 unit SUBCUT Q8H [facility] Last Admin: 05/08/22 08:22 Dose: 5,000 unit Documented By: RON Insulin Glargine (Insulin Glargine,Hum.Rec.Anlog 100 Unit/Ml 10 Ml Vial) 80 unit SUBCUT BID [facility] Last Admin: 05/08/22 08:22 Dose: 80 unit Documented By: RON Insulin Human Lispro (Insulin Lispro 100 Unit/Ml 3 Ml Vial) 0 unit SUBCUT QIDACHS [facility]; Protocol Last Admin: 05/08/22 11:41 Dose: 8 unit Documented By: RON Pharmacy Consult (Consult Rx Perform Med Rec) 1 each MISCELLANE ONCE PRN PRN Reason: Consult order Sodium Chloride (0.9 % Sodium Chloride Flush 3 Ml Syringe) 3 ml IVFLUSH QSHIFT [facility] Last Admin: 05/08/22 08:23 Dose: 3 ml Documented By: RON Labs CBC & Chem 7: 05/07/22 05:50 05/07/22 05:50 Labs: Laboratory Results - last 24 hr 05/07/22 05/07/22 05/08/22 15:45 19:56 07:20 POC Glucose 213 H 230 H 149 H 05/08/22 11:20 POC Glucose 219 H Assessment and Plan (1) Uncontrolled diabetes mellitus with hyperglycemia: Status: Acute (2) Hyperosmolar hyperglycemic state (HHS): Status: Acute Plan hospital d#5 42yo M with no PMHx admitted to ICU with HHS, new diagnosis DM2 with HbA1c >14 # new dx DM2 - basal/bolus insulin, teaching, PCP + Endocrine f/u # NGOZI, prerenal - resolved s/p IV fluid hydration # metabolic encephalopathy - due to HHS, resolved # VTE ppx: HHS In my clinical judgment, the patient requires continued inpatient hospitalization for the following reasons: insulin teaching, running insulin + supplies through insurance Time Spent With Patient Time: Total time managing care of this patient today ____ minutes. Quality Stroke Does the patient have a stroke diagnosis?: No VTE Prior VTE?: No VTE Risk Level:: Medical - moderate - high VTE Device Contraindication: N/A - Device Ordered VTE Drug Contraindication: N/A - Med Ordered
[2022-05-08 15:18] VITALS: BP 112/64; PULSE 108; RESP 17; TEMP 36.6; O2SAT 98
[2022-05-08 19:27] VITALS: BP 116/70; PULSE 105; RESP 19; TEMP 36.9; O2SAT 98
[2022-05-08 23:29] VITALS: BP 141/84; PULSE 109; RESP 16; TEMP 37.3; O2SAT 98
[2022-05-09 07:33] VITALS: BP 134/77; PULSE 103; RESP 20; TEMP 36.6; O2SAT 97
[2022-05-09] MEDS: Insulin Lispro 100 UNIT/ML 3 ML VIAL SUBCUT (08:44)
[2022-05-09] MEDS: 0.9 % Sodium Chloride Flush 3 ML SYRINGE IVFLUSH (08:47)
[2022-05-09] MEDS: Insulin Glargine,Hum.rec.anlog 100 UNIT/ML 10 ML VIAL 80 UNIT SUBCUT (08:47)
--- NOTE | 2022-05-09 09:08 | MHC.CM.PN ---
Addendum entered by Kerry Oconnell 05/09/22 16:22: Family brought the [employer] to hospital this afternoon. All DM supplies have been obtained. Per nursing Patient did well with [facility] ED. Patient verbalized understanding of [facility] ED. Family will provide transport home. [facility] to see pt 05/15/22. The referral has been sent and acknowledged as received. Original Note: DP home with [facility] after new PCP appointment. New PCP [facility] office, LOUISA Jamil. Appointment is scheduled for 05/14/22 11AM. [facility] has been referred. They will see Patient once he has been seen by his new PCP. Per patient the pharmacy is anticipating med delivery this afternoon. Family will provide transportation home at discharge.
[2022-05-09 11:10] VITALS: BP 138/75; PULSE 114; RESP 20; TEMP 37.2; O2SAT 98
[2022-05-09 12:21] LABS: Creatinine Urine 37.84 mg/dL; Microalbumin Urine < 5.0 mg/L
--- NOTE | 2022-05-09 13:03 | W.MHC.F2F ---
Service Date Service Date: 05/09/22 Encounter Date of encounter: 05/09/22 Reasons for Services Signs and symptoms assessed: DM Reason for jail: monitoring of unstable blood sugar, medication management, medication treatment and teach disease management MD Overseeing Care: Sheldon Rodriguez Homebound: Leaving the home is medically contraindicated at this time without the asist of a device and/or another person due th the listed conditions above and below. Reason homebound: weakness related to hospital stay Certification: Based on the above findings, I certify that this patient is confined to the home and needs intermittent jail care, physical therapy and/or speech therapy, or continues to need occupational therapy. The patient is under my care, and I have initiated the establishment of the plan of care. The patient will be followed by a physician who will periodically review the plan of care. Time Spent With Patient Time: Total time managing care of this patient today ____ minutes.
--- NOTE | 2022-05-09 13:04 | PM.DS ---
DS: Providers Provider Date of Service: 05/09/22 Date of admission: 05/04/22 23:08 Date of discharge: 05/09/22 Primary care physician: [place] Physician DS: Diagnosis Discharge Diagnosis (1) Uncontrolled diabetes mellitus with hyperglycemia: Status: Acute (2) Hyperosmolar hyperglycemic state (HHS): Status: Acute (3) Acute kidney injury: Status: Acute (4) Acute metabolic encephalopathy: Status: Acute (5) Pseudohyponatremia: Status: Acute DS: Summary Hospital Course Hospital Course: from admission history and physical by hose sprayer Trent Levy MD, 05/04/22: 42-year-old male who was a diabetic and I have no medication list for him and when I asked him why he came in what he felt he just says sugar he clearly is confused even though he is oriented to name and to place and from hose sprayer Honorio Alarcon, 05/05/22: 42-year-old gentleman with no prior medical history admitted on 05/04/2022 with acute metabolic encephalopathy secondary to diabetic ketoacidosis with pseudo hyponatremia secondary to greatly elevated glucose.? Patient was started on insulin drip with significant improvement.? He was transition to Lantus earlier today, however on a follow-up BMP check his bicarbonate and dropped significantly and additional Lantus was given. This 42yo M with no PMHx admitted to ICU with HHS, new diagnosis DM2 with HbA1c >14. He was transitioned to SQ insulin and ended up requiring very high doses, i.e. 80 units Lantus bid + 15 units Humalog tidac. Prerenal NGOZI resolved with fluid hydration and metabolic encephalopathy resolved as the HHS resolved. He underwent DM teaching and was discharged on the above insulin doses. Urgent primary care follow-up was arranged and he will also need referral to Endocrinology for insulin management, possibly including concentrated insulin or pump. Time Spent with Patient Time attestation: Total time managing care of this patient today __35__ minutes. Discharge coordination time: Greater than 30 minutes Quality: Safe Use of Opioids Does Pt have an Active Cancer Diagnosis on the Problem List?: No Quality: Stroke Does the patient have a stroke diagnosis?: No Physical Exam Vital Signs: Vital Signs: Last Vital Signs Temp 98.9 F 05/09/22 11:10 Pulse 114 H 05/09/22 11:10 Resp 20 05/09/22 11:10 BP 138/75 05/09/22 11:10 Pulse Ox 98 05/09/22 11:10 O2 Del Method 05/09/22 11:10 BMI result Body Mass Index 30.7 Gen: in no acute distress HEENT: sclera anicteric, moist mucus membranes Neck: supple Lungs: clear to auscultation bilaterally Heart: regular rate and rhythm, no murmurs Abd: soft, non-tender, non-distended Ext: no edema Skin: warm/well-perfused Neuro: alert and oriented x3, no focal findings Psych: appropriate affect DS: Data Data Completed and Pending Completed studies during hospitalization [Text1]: Laboratory Results WBC 5.5 X10*3/uL (4.8-10.8) 05/07/22 05:50 RBC 4.09 X10*6/uL (4.60-5.80) L 05/07/22 05:50 Hgb 11.4 g/dl (14.0-18.0) L 05/07/22 05:50 Hct 34.9 % (42.0-52.0) L 05/07/22 05:50 MCV 85.3 fL (80.0-98.0) 05/07/22 05:50 MCH 27.9 pg (27.0-33.0) 05/07/22 05:50 MCHC 32.7 g/dl (31.0-36.0) 05/07/22 05:50 RDW 12.3 % (11.0-16.0) 05/07/22 05:50 Plt Count 111 X10*3/uL (160-400) L 05/07/22 05:50 MPV 10.9 fL (9.4-12.4) 05/07/22 05:50 Immature Gran % (Auto) 0.4 % (0.0-0.4) 05/07/22 05:50 Neut % (Auto) 53.6 % (45-73) 05/07/22 05:50 Lymph % (Auto) 33.9 % (20-40) 05/07/22 05:50 [place]field % (Auto) 9.9 % (2-11) 05/07/22 05:50 Eos % (Auto) 1.8 % (0-4) 05/07/22 05:50 Baso % (Auto) 0.4 % (0-2) 05/07/22 05:50 Lymph # (Auto) 1.9 X10*3/uL (1.2-4.9) 05/07/22 05:50 Whitfield # (Auto) 0.5 X10*3/uL (0.1-1.2) 05/07/22 05:50 Eos # (Auto) 0.1 X10*3/uL (0.0-0.4) 05/07/22 05:50 Baso # (Auto) 0.0 X10*3/uL (0.0-0.2) 05/07/22 05:50 Abs Immat Gran (auto) 0.02 X10*3/uL (0.00-0.03) 05/07/22 05:50 Absolute Neuts (auto) 2.9 x10*3/uL (2.0-8.3) 05/07/22 05:50 Absolute Nucleated RBC 0.000 X10*3/uL (0.0-0.012) 05/07/22 05:50 Nucleated RBC % (auto) 0.0 /100WBC (0.0-0.2) 05/07/22 05:50 PT 11.7 SEC (10.0-13.1) 05/04/22 20:16 INR 1.0 (0.9-1.1) 05/04/22 20:16 VBG pH 7.55 (7.32-7.43) H 05/05/22 05:11 VBG pCO2 29 mmHg 05/05/22 05:11 VBG pO2 61 mmHg 05/05/22 05:11 VBG HCO3 25 mmol/L (22-26) 05/05/22 05:11 VBG O2 Saturation 92.0 % 05/05/22 05:11 VBG Base Excess 4.3 mmol/L 05/05/22 05:11 Sodium 139 mmol/L (135-145) 05/07/22 05:50 Potassium 3.5 mmol/L (3.3-5.1) 05/07/22 05:50 Chloride 103 mmol/L (96-108) 05/07/22 05:50 Carbon Dioxide 30 mmol/L (22-29) H 05/07/22 05:50 Anion Gap 10 (12-20) L 05/07/22 05:50 BUN 10 mg/dL (9-16) 05/07/22 05:50 Creatinine 0.80 mg/dL (0.5-1.4) 05/07/22 05:50 Estim Creat Clear Calc 111.5 05/07/22 05:50 Estimated GFR > 60 05/07/22 05:50 POC Glucose 256 mg/dL (60-115) H 05/09/22 11:09 Random Glucose 149 mg/dL (60-115) H 05/07/22 05:50 Estimat Average Glucose TNP 05/05/22 12:11 Hemoglobin A1c % > 14.0 % 05/05/22 12:11 Lactic Acid 4.2 mmol/L (0.5-2.0) H* 05/04/22 20:17 Lactic Acid F/U @ 2Hr 3.7 mmol/L (0.5-2.0) H* 05/04/22 22:30 Lactic Acid F/U @ 4Hr 2.0 mmol/L (0.5-2.0) 05/05/22 00:54 Calcium 8.5 mg/dL (8.4-10.2) 05/07/22 05:50 Phosphorus 2.6 mg/dL (2.7-4.5) L 05/07/22 05:50 Magnesium 2.5 mg/dL (1.6-2.6) 05/07/22 05:50 Total Bilirubin 0.7 mg/dL (0.0-1.0) 05/05/22 05:14 AST 33 U/L (5-37) 05/05/22 05:14 ALT 99 U/L (0-40) H 05/05/22 05:14 Alkaline Phosphatase 140 U/L (39-117) H 05/05/22 05:14 Troponin I High Sens 8.7 ng/L (<3.5-35.0) 05/04/22 20:15 Total Protein 6.6 g/dL (6.5-8.0) 05/05/22 05:14 Albumin 2.9 g/dL (3.5-5.0) L 05/07/22 05:50 Urine Color Yellow 05/04/22 20:36 Urine Appearance Clear 05/04/22 20:36 Urine pH 5.0 (5.0-9.0) 05/04/22 20:36 Ur Specific [place] >= 1.030 (1.005-1.025) H 05/04/22 20:36 Urine Protein Negative mg/dL (Neg-Trace) 05/04/22 20:36 Urine Glucose (UA) >=1000 mg/dL (Negative) H 05/04/22 20:36 Urine Ketones 15 mg/dL (Negative) 05/04/22 20:36 Urine Blood Negative (Negative) 05/04/22 20:36 Urine Nitrite Negative (Negative) 05/04/22 20:36 Ur Leukocyte Esterase Negative (Negative) 05/04/22 20:36 Urine RBC 0-2 /HPF (0-2) 05/04/22 20:36 Urine WBC 0-5 /HPF (0-5) 05/04/22 20:36 Ur Squamous Epith Cells 0-2 /HPF (0-2) 05/04/22 20:36 Urine Bacteria None Seen (None Seen) 05/04/22 20:36 Hyaline Casts 0-2 /LPF (0-2) 05/04/22 20:36 Urine Creatinine 37.84 mg/dL 05/09/22 11:37 Urine Microalbumin < 5.0 mg/L 05/09/22 11:37 Microalb/Creat Ratio TNP 05/09/22 11:37 Urine Opiates Screen Not Detected (Not Detect) 05/04/22 20:36 Urine Fentanyl Screen Not Detected (Not Detect) 05/04/22 20:36 Ur Barbiturates Screen Not Detected (Not Detect) 05/04/22 20:36 Ur Phencyclidine Scrn Not Detected (Not Detect) 05/04/22 20:36 Ur Amphetamines Screen Not Detected (Not Detect) 05/04/22 20:36 U Benzodiazepines Scrn Not Detected (Not Detect) 05/04/22 20:36 Urine Cocaine Screen Not Detected (Not Detect) 05/04/22 20:36 U Marijuana (THC) Screen Not Detected (Not Detect) 05/04/22 20:36 Ethyl Alcohol < 10 mg/dL 05/04/22 20:17 Acetone, Qual Small (Negative) H 05/04/22 20:16 Influenza Type A (PCR) NEGATIVE (Negative) 05/04/22 20:15 Influenza Type B (PCR) NEGATIVE (Negative) 05/04/22 20:15 RSV RNA Qual (PCR) NEGATIVE (Negative) 05/04/22 20:15 SARS-CoV-2 RNA (RT-PCR) NEGATIVE (Negative) 05/04/22 20:15 Impressions Chest X-Ray 05/04/22 20:05 IMPRESSION: Unremarkable examination. Discharge Plan Discharge Anticipated Discharge Date/Time: 05/07/22 14:44 Patient Disposition: Home, Self-Care Discharge Diagnosis: HHS due to uncontrolled new-onset DM Referrals: New PCP [facility] [Other] (05/14/22 11AM [facility] will start homecare services on 05/15/22. ) Dorothy SORIAA [Outside] Sheldon Rodriguez, ACUTE CARE NURSE PRACTITIONER [Nurse Practitioner] - 1 Week Discharge Medications: New alcohol swabs Pads, Medicated 1 pad TOPICAL QIDACHS Qty: 300 1RF Rx Instructions: Use four times a day or as directed. insulin lispro [Humalog KwikPen Insulin] 100 unit/mL insulin pen 15 unit subcut TIDAC Qty: 15 1RF Rx Instructions: = insulin glargine [Lantus Solostar U-100 Insulin] 100 unit/mL (3 mL) insulin pen 80 unit SUBCUT BID Qty: 60 1RF (DME) pen needle, diabetic 32 gauge x 1/4 needle Qty: 300 1RF Rx Instructions: Use four times a day or as directed. (DME) blood-glucose meter [True Metrix Glucose Meter] Kit See Rx Instructions .Route Qty: 1 0RF Rx Instructions: As directed (DME) True Metrix Glucose Test Strip Strip See Rx Instructions .Route Qty: 120 1RF Rx Instructions: As directed (DME) lancets [Lancets,Thin] Misc See Rx Instructions .Route Qty: 120 1RF Rx Instructions: As directed insulin aspart U-100 [Novolog Flexpen U-100 Insulin] 100 unit/mL (3 mL) insulin pen 15 unit subcut TID Qty: 15 1RF (DME) lancets [Lancets,Thin] Misc See Rx Instructions .Route Qty: 120 1RF Rx Instructions: before breakfast and 2 hours after each meal (DME) blood-glucose meter [True Metrix Glucose Meter] Kit See Rx Instructions .Route Qty: 1 0RF Rx Instructions: before breakfast and 2 hours after each meal (DME) True Metrix Glucose Test Strip Strip See Rx Instructions .Route Qty: 120 0RF Rx Instructions: before breakfast and 2 hours after each meal Diet: Diabetic diet Activity on Discharge: As tolerated Stand Alone Forms: Patient Portal Discharge page Care Plan Goals: avoid diabetes complications Health Concerns: HHS due to uncontrolled new-onset DM Plan of Treatment: Insulin: Lantus 80 units twice daily Novolog 15 units 3 times a day Check your blood sugar in the morning and 2 hours after each meal. Goal blood sugar in the morning is 80-140. Goal blood sugar after each meal is 80-200. Avoid sugar and simple starches Please follow up with your primary care doctor within 1 week. Return to the hospital if you experience recurrent or worsening symptoms. Follow up with primary care provider Sheldon SCHNEIDER as scheduled. Urgent referral to Endocrinology. Assessment: See Discharge Summary. Patient Instructions: Insulin Aspart, Recombinant (By injection), Insulin Glargine (By injection), Type 2 Diabetes in Adults: New Diagnosis (ED), How to Give an Insulin Injection (DC), Insulin Pens (ED), Mediterranean Diet (DC), What to Do if Your Blood Sugar is Low (DC)
--- NOTE | 2022-05-09 13:42 | PC.NURSE ---
1130- POC 256 Patient educated on use of aspart pen that he will be discharged home with. MD order to have patient self administer insulin with meals. Patient return demonstrated appropriate technique with administering 15units of insulin using pen. Diabetic diet teaching given. Educated patient on symptoms of hypoglycemia.
[2022-05-09 15:46] VITALS: BP 124/68; PULSE 116; RESP 16; TEMP 36.3; O2SAT 97
== END 2022-05-09 18:33 | disposition home or self-care (01) | DRG 637 ==
LOC: HO.ED 05-05 00:06 → HO.ICU 05-05 00:13 → HO.IMC 05-07 00:03
PROVIDERS: Internal Medicine Pulmonary Disease; Physician Assistant Medical; Admitting Provider Internal Medicine Cardiovascular Disease; Emergency Provider Emergency Medicine; Visit Provider Family Medicine
DX: E11.00 Type 2 diabetes mellitus with hyperosmolarity without nonketotic hyperglycemic-hyperosmolar coma (NKHHC) (principal); G93.41 Metabolic encephalopathy; N17.9 Acute kidney failure, unspecified; E87.5 Hyperkalemia; Z20.822 Contact with and (suspected) exposure to COVID-19
CPT/HCPCS: 0241U; 36415; 71045; 80048; 80053; 80307; 81001; 82009; 82040; 82043; 82077; 82803; 82947; 83036; 83605; 83735; 84100; 84484; 85025; 85610; 87040; 93005; 96361; 96374; 96375; 99285